=== PATIENT | male | born 2000 | race Caucasian/White ===

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

== ENCOUNTER 2019-11-02 09:42 | Emergency (ER) | payer SELFPAY ==
[2019-11-02 09:43] VITALS: BP 112/68; PULSE 63; RESP 18; TEMP 36.8; O2SAT 99; BMI 18.6
--- NOTE | 2019-11-02 10:08 | ED.VIS.GEN ---
History of Present Illness Chief Complaint: Chest Other Informant: Patient Narrative: Patient is a 18-year-old previously healthy male who presents to the emergency department for left-sided chest pain. He states that he woke up with this. He is never had it before in the past. It got up to an 8 out of 10 sharp stabbing sensation in the lower anterior chest wall. He currently denies any pain whatsoever. He states that his work sent him home and that is why he came to the emergency department to get a work excuse. He currently denies any pain whatsoever. Nothing aggravates it at this time. He states that the coughing did slightly hurt whenever he did have the symptoms earlier this morning. No associated shortness of breath. Has not had a leg swelling or calf pain. No history of DVT/PE. No recent prolonged periods of immobility. He is a current everyday smoker. Denies any alcohol or drug abuse. He denies any recent illnesses including any cough, cold, congestion. No fevers or chills. Past Medical History - Allergies and Home Meds Allergies/Adverse Reactions: Allergies No Known Allergies Allergy (Verified 11/02/19 09:45) Primary Care Physician: Mazin Torres MD [Primary Care Provider] - Prior records reviewed: Yes Past Medical History: - Surgical History: no surgical history Smoking Status: Current every day smoker Alcohol: None Drugs: None Review of Systems General: Denies: Chills, Fever, Sweats Eyes: Denies: Visual changes - bilaterally, Diplopia ENT: Denies: Rhinorrhea, Sore throat Cardiovascular: Denies: Chest pain - Resolved, Palpitations Respiratory: Denies: Dyspnea, Cough, Dyspnea on exertion Gastrointestinal: Denies: Abdominal pain, Nausea, Vomiting, Diarrhea, Melena, Hematochezia Genitourinary: Denies: Dysuria, Hematuria, Frequency Musculoskeletal: Denies: Back pain, Extremity Pain Skin: Denies: Rash, Wounds Neurological: Denies: Headache, Weakness, Numbness Physical Exam Vital Signs/Narrative: Vital Signs Temp Pulse Resp BP Pulse Ox 11/02/19 09:43 98.2 F 63 18 112/68 99 Inital Vital Signs reviewed: Yes General: Well nourished, Well developed, No Acute Distress Head: Normocephalic, Atraumatic Eyes: Perrl, EOMI ENT: Moist mucous membranes, No rhinorrhea Neck: Supple, Nontender Cardiovascular: Regular rate, Regular rhythm, No murmurs Respiratory: No distress, CTA bilaterally, Chest tenderness - Very mild to lower anterior ribs on the left. No overlying skin changes. Abdomen: Soft, Nontender, Nondistended, Normal bowel sounds Back: Nontender, Normal Inspection Extremities: Nontender, No edema Skin: Normal color, No rash Neurological: Alert, Oriented x3, Cranial nerves II-XII grossly intact, Normal Strength, Normal Sensation Psychological: Normal affect, Normal Mood Diagnostic/Tx/Re-eval - Medical Decision Making Patient presents to the emerge department for an episode of sharp left-sided chest wall pain. This is since resolved. Vital signs within normal limits. Not hypoxic or tachycardic. Very low concern for pulmonary embolism. I did offer a work-up but patient is only requesting a work excuse at this time. Since patient's symptoms have completely resolved and vital signs within normal limits with a benign physical exam I do believe that this is appropriate. Provide a work excuse for today. He otherwise needs to follow-up with his PCP. If he develops any worsening symptoms he is to return to the emergency department for lab work, imaging. He understands and is agreeable with this plan. Will discharge home in stable condition. ED Disposition - Plan for ED Patient: Disposition: Home or Assisted Living Diagnosis: Chest wall pain Instructions: ED Chest Pain NonCardiac Referrals: Mazin Torres MD [Primary Care Provider] - 2 Days
== END 2019-11-02 10:56 | disposition home or self-care (01) ==
PROVIDERS: Emergency Provider Emergency Medicine; PCP Pediatrics
DX: R07.89 Other chest pain (principal); R05 Cough; F17.200 Nicotine dependence, unspecified, uncomplicated
CPT/HCPCS: 99282

== ENCOUNTER 2020-07-23 07:05 | Emergency (ER) | payer MEDICAID, SELFPAY ==
[2020-07-23 07:07] VITALS: BP 104/64; PULSE 68; RESP 16; TEMP 36.4; O2SAT 99; BMI 21.2
--- NOTE | 2020-07-23 07:25 | RAD_ITS ---
STUDY: X-RAY - RIGHT KNEE REASON FOR EXAM: Lateral right knee pain, football injury of the right knee. TECHNIQUE: 4 view(s) of the knee. COMPARISON: None. FINDINGS: Normal visualized distal femur. Normal visualized proximal tibia and fibula. Normal proximal tibiofibular articulation. Normal medial femorotibial compartment. Normal lateral femorotibial compartment. Normal patellofemoral articulation. The soft tissue structures are unremarkable. RAD/Knee 4 or More Views IMPRESSION: Normal x-ray examination of the right knee. Electronically Signed: Bienvenido Amin MD at 8:12 EDT Tel , Service support ,
[2020-07-23] MEDS: Naproxen 500 MG Tablet PO (07:37)
--- NOTE | 2020-07-23 08:01 | ED.VISSUMM ---
- ER Visit Summary Date of Service: 07/23/20 Chief Complaint: Right knee pain History of Present Illness: The patient is a 19 M with no primary care physician. He reports he was playing tackle football last night had a forced flexion and twist of his right knee. He did not feel a pop. He had mild pain last night. However, reports this morning when he attempted to walk he had a sharp pain was 10 out of 10 severity at worst. Stated 10 severity currently. He is not taking anything for pain. He denies any paresthesias distally. Physical Examination: Vitals: Stable. Afebrile. General: Well-nourished and well-developed. Head: Normocephalic atraumatic. Neck: Supple, no lymphadenopathy. No JVD. Nontender. Cardiovascular: Regular rate and rhythm. No murmurs. Respiratory: No respiratory distress. Clear to auscultation bilaterally. Abdominal: Soft, nontender, nondistended, normal bowel sounds. No guarding, rebound, or peritoneal signs. Back: Nontender. Extremities: No appreciable joint effusion. He has moderate tenderness palpation over the lateral portion of his knee. There is no pain over the medial portion. He has pain, but no ligamentous instability with lateral stress. No bony pain or ligamentous instability with anterior posterior drawer or medial stress. There is no overlying erythema or warmth. He has no pain with short arc movements. He is neuro vas intact distal to this. Skin: Normal color, no rash. Neurologic: Alert and oriented ?3. Cranial nerves II through XII are intact. Normal strength and sensation. Psych: Normal affect. Test Results: Right knee x-ray shows no acute disease. Emergency Department Course and Treatment: Patient was treated with naproxen and was placed on crutches. Treatment Plan: Patient will be discharged with naproxen. Instructed follow-up Dr. Muro in 1 week if not improving. Return to the emergency department for any worsening symptoms. Disposition: To home in improved and stable condition. Impression: 1. Right knee pain, acute. This note was generated with [employer] dictation software. It may contain incorrect words, spelling, and punctuation that were not noted in review of the chart prior to signing ED Disposition - Plan for ED Patient: Instructions: ED Knee Pain of Uncertain Cause Prescriptions: Naproxen [Naprosyn] 500 mg PO BID #14 tablet Referrals: Khris Muro MD [STAFF PHYSICIAN] - 1 Week if not improving
[2020-07-23 08:15] VITALS: RESP 16
--- NOTE | 2020-07-23 08:15 | ED.RN ---
REVIEWED D/C PAPERS, PT VERBALIZED UNDERSTANDING. PT AMBULATED OUT OF ED USING CRUTCHES. NO DISTRESS NOTED.
== END 2020-07-23 08:16 | disposition home or self-care (01) ==
LOC: ED 07:42
PROVIDERS: Emergency Provider Emergency Medicine; PCP Pediatrics
DX: M25.561 Pain in right knee (principal); F17.200 Nicotine dependence, unspecified, uncomplicated
CPT/HCPCS: 73564; 99285

== ENCOUNTER 2021-03-16 15:20 | Emergency (ER) | payer MEDICAID, SELFPAY ==
[2021-03-16 15:20] VITALS: BP 130/74; PULSE 53; RESP 14; TEMP 36.4; O2SAT 100; BMI 22.4
--- NOTE | 2021-03-16 16:14 | EX.ED.UPPERE ---
HPI History of Present Illness HPI Narrative: Patient presents with a right hand injury that occurred today. Patient states he was working on a car and he accidentally dropped a transmission onto his right hand. Patient states the pain is constant and aching. Patient states it is over the third and fourth metacarpals. Patient denies any paresthesias or weakness. Patient has 2 lacerations on the dorsum of his right hand from the trauma. Patient denies any other injuries. Chief Complaint: Upper Extremity Injury Informant: patient Occured/Mechanism Mechanism/Context: Yes blunt trauma Onset/Context/Timing Onset: Today Context: Sudden Onset Timing: Continuous Quality of Pain: Aching Worsened by: Movement Relieved by: Rest Associated Symptoms Associated Symptoms: Negative for Parasthesia, Weakness and Loss of Funtion PFSH PFS Medical History (Updated 03/16/21 @ 18:[address] Wayne Hair DO) Heart murmur Allergy/AdvReac Type Severity Reaction Status Date / Time No Known Allergies Allergy Verified 03/16/21 15:23 Surgical History (Updated 03/16/21 @ 16:[address] Wayne Hair DO) Hx of tympanostomy tubes Social History Smoking Status: Current every day smoker tobacco type: cigarettes ROS ROS ED Constitutional Constitutional ED: Denies chills or fever(s) Eyes Eyes: Denies blurry vision or change in vision ENT ENT ED: Denies rhinorrhea or sore throat Cardiovascular Cardiovascular: Denies chest pain or palpitations Respiratory/Chest Respiratory/Chest: Denies cough or dyspnea Gastrointestinal Gastrointestinal: Denies nausea or vomiting Genitourinary Genitourinary ED: Denies dysuria or hematuria Musculoskeletal Musculoskeletal: Denies back pain or neck pain Integumentary Denies abscess or rash Neurologic Neurologic: Denies headache(s) or weakness Allergic/Immunologic Allergic/Immunologic ED: Denies mouth swelling or urticaria EXAM Physical Exam Const Vital Signs: 03/16/21 15:20 Temperature 97.5 F L Temperature Source Temporal Pulse Rate 53 L Respiratory Rate 14 Blood Pressure 130/74 H Blood Pressure Mean 92 Pulse Ox 100 Oxygen Delivery Method Room Air Positive well nourished and well developed General Appearance ED: well developed HEENT Reports moist mucous membranes Neck full ROM and supple Extremity Extremity Narrative: There is tenderness over the right hand over the third and fourth metacarpals. There is no bony crepitance or step-off. There is no obvious deformity noted. Range of motion was slightly limited in all motions of the right hand and wrist secondary to pain. Sensation was intact to light touch in the radial, median, and ulnar areas. Strength is 5/5 in the radial, median, and ulnar areas. Radial pulses are equal bilaterally. Neuro oriented x3, CN's II-XII intact bilaterally, moves all extremities, no focal motor deficits and no sensory deficits noted Sensorium / Orientation: alert Psych mental status grossly normal Skin Skin Narrative: There is a 1 cm laceration over the dorsal aspect of the right hand over the distal third metacarpal. There is minimal gapping of the wound margins. There is no active bleeding. There is no foreign body noted. There is also a 1.5 cm linear laceration over the dorsal aspect of the right hand over the base of the fourth metacarpal. There is minimal gapping of the wound margins. There is no bleeding. There is no foreign body noted. MDM MDM MDM Narrative Medical decision making narrative: X-rays of the right hand were obtained. There are 3 views. On my interpretation, there is no acute fracture. There is no dislocation. There is no soft tissue swelling. Radiologist also interpreted the x-rays and agrees. The wounds were cleaned and irrigated with copious amounts normal saline. The wounds were closed with Dermabond skin adhesive. Patient was instructed to avoid any Neosporin, bacitracin, or Vaseline-based ointments to the area. Patient was instructed to keep the wound clean and dry. Patient was instructed to follow-up with his primary care physician in 5 to 7 days. Patient understood and was agreeable with the plan. All questions were answered. Discharge Plan Triage Chief Complaint: Upper Extremity Injury ED Provider: Wayne Hair Dx/Rx/DC Orders Clinical Impression: Laceration of right hand Instructions: ED Laceration, Hand: All Closures Primary Care Provider: Mazin Torres Referrals: Mazin Torres MD [Primary Care Provider] - 5-7 Days Disposition Disposition: Home, Self Care
--- NOTE | 2021-03-16 16:15 | RAD_ITS ---
STUDY: X-RAY - RIGHT HAND REASON FOR EXAM: Male, 20 years old. Injury/Pain dropped transmission on right hand TECHNIQUE: 3 view(s) of the hand. COMPARISON: None. FINDINGS: Normal radiocarpal articulation. Normal distal radioulnar joint. Normal visualized carpal bones. Normal carpal articulations Normal carpometacarpal articulation of the thumb. Normal second through fifth carpometacarpal joints. Normal metacarpi. No visualized fracture or displaced bony fragment. Normal metacarpophalangeal joint of the thumb. Normal interphalangeal joint of the thumb. Normal proximal and distal phalanges of the thumb. Normal metacarpophalangeal joints of the second through fifth fingers. Normal proximal and distal interphalangeal joints of the second through fifth fingers. Normal phalanges of the second through fifth fingers. The soft tissue structures are unremarkable. RAD/Hand Min 3 Views IMPRESSION: Normal x-ray examination of the hand. Electronically Signed: Saulo Gibson MD at 17:28 EST , Service support ,
[2021-03-16 18:37] VITALS: PULSE 16
== END 2021-03-16 18:38 | disposition home or self-care (01) ==
PROVIDERS: Emergency Provider Emergency Medicine; PCP Pediatrics
DX: S61.411A Laceration without foreign body of right hand, initial encounter (principal); W20.8XXA Other cause of strike by thrown, projected or falling object, initial encounter; Y93.89 Activity, other specified; Y92.9 Unspecified place or not applicable; Y99.9 Unspecified external cause status; F17.210 Nicotine dependence, cigarettes, uncomplicated
CPT/HCPCS: 12001; 73130; 99282

== ENCOUNTER 2021-05-06 02:07 | Emergency (ER) | payer MEDICAID, SELFPAY ==
[2021-05-06 02:09] VITALS: BP 119/68; PULSE 68; RESP 16; TEMP 38.1; O2SAT 100; BMI 21.7
--- NOTE | 2021-05-06 02:21 | RAD_ITS ---
EXAM: XR CHEST, 1 VIEW : 1999 CLINICAL INDICATION: cough TECHNIQUE: Frontal view of the chest. This report was created using [employer] report generation technology. COMPARISON: None. FINDINGS: LUNGS AND PLEURAL SPACES: Unremarkable. No consolidation or edema. No pneumothorax. No effusion. HEART: Unremarkable. Cardiac silhouette not enlarged. MEDIASTINUM: Central airways and mediastinal contour are unremarkable. BONES/JOINTS: Unremarkable. SOFT TISSUES: Unremarkable. RAD/Chest 1 View (Portable) IMPRESSION: No radiographic evidence of acute cardiopulmonary disease. at 0304 Reported and signed by: Giorgio Curiel MD Electronically Signed: Giorgio Curiel MD at 3:03 EST Tel , Service support ,
[2021-05-06] MEDS: 0.9% Normal Saline 1,000 ML 999 ML IV (02:39)
[2021-05-06] MEDS: dexAMETHasone 10 MG/ML Vial IV (02:39)
[2021-05-06] MEDS: Ketorolac 30 MG/ML Syringe IV (02:39)
[2021-05-06 02:45] LABS: Bacteria 0 SEEN /hpf (None Seen); Mucous, Urine 0 SEEN /hpf (<or=2+); Squamous Epithelial Cells - UA 0 SEEN /hpf (0-5); White Blood Cells 0 SEEN /hpf (0-5)
[2021-05-06 02:47] LABS: Color, Urine Yellow (Yellow); Glucose, Dipstick Normal (Normal); Ketone-Dipstick 5 mg/dl (Negative); Leukocyte Esterase-Dipstick Negative /ul (Negative); Nitrite-Dipstick Negative (Negative); Occult Blood-Urine Negative /ul (Negative); Protein-Dipstick 15 mg/dl (Negative); Specific Gravity, Urine 1.015 (1.002-1.030); Urine Bilirubin Dipstick Negative (Negative); Urine Clarity Clear (Clear); Urine Urobilinogen 8 mg/dl (Normal); Urine pH 6.5 (5.0 - 8.0)
[2021-05-06 02:57] LABS: Red Blood Cells-Urine 0-5 SEEN /hpf (0-5)
--- NOTE | 2021-05-06 03:05 | EDS_ITS ---
HPI History of Present Illness Chief Complaint: Back Narrative Narrative: Patient is a 20-year-old male who states that he has had a few days of nasal congestion with cough. He states he does have COVID exposure and is not vaccinated. He states that around 7 or 8 PM this evening he noticed pain in his upper mid back. He denies any trauma associated with this or excessive activity. He denies any loss of bowel or bladder control or IV drug use. He denies any radiation of the pain or abdominal pain associated with this. He states that he feels the pain has been slowly increasing since its onset and secondary to this presents for evaluation [facility] Medical History Heart murmur Home Medications NK 05/06/21 [History Last Taken Unknown] prednisone 40 mg PO DAILY 7 Days #14 tab 05/06/21 [Rx Last Taken Unknown] promethazine-codeine 5 ml PO Q6H PRN 7 Days #140 ml 05/06/21 [Rx Last Taken Unknown] Allergy/AdvReac Type Severity Reaction Status Date / Time No Known Allergies Allergy Verified 05/06/21 02:07 Surgical History Hx of tympanostomy tubes Social History Smoking Status: Current every day smoker tobacco type: cigarettes ROS ROS ED Constitutional Constitutional ED: Denies chills or fever(s) ENT ENT ED: Reports rhinorrhea and sore throat Cardiovascular Cardiovascular: Denies chest pain Respiratory/Chest Respiratory/Chest: Reports cough; Denies dyspnea Gastrointestinal Gastrointestinal: Denies abdominal pain, diarrhea, nausea or vomiting Genitourinary Genitourinary ED: Denies dysuria or hematuria Musculoskeletal Musculoskeletal: Reports back pain; Denies myalgias Integumentary Denies rash Neurologic Neurologic: Denies headache(s) Hematologic/Lymphatic Hematologic/Lymphatic: Denies easy bleeding or easy bruising EXAM Physical Exam Const Vital Signs: 05/06/21 02:09 Temperature 100.6 F H Temperature Source Temporal Pulse Rate 68 Respiratory Rate 16 Blood Pressure 119/68 Blood Pressure Mean 85 Pulse Ox 100 Oxygen Delivery Method Room Air Positive well nourished and well developed General Appearance ED: well developed HEENT Reports moist mucous membranes HEENT Narrative: Cobblestoning the posterior pharynx consistent with sinus drainage but no airway edema or compromise Eyes PERRL and EOMs intact bilaterally Neck supple Neck Narrative: Positive anterior cervical lymphadenopathy noted Chest Wall palpation of chest normal Resp normal respiratory effort and clear to auscultation bilaterally Cardio regular rate and regular rhythm GI normal to inspection, nondistended, normoactive bowel sounds, non-tender, non- distended and no masses Auscultation: normoactive bowel sounds Palpation: soft Back/Spine no CVA tenderness Back/Spine Narrative: No bony deformity or step-off of the thoracic or lumbar spine. There is mild pain with palpation of the middle to lower third of the t horacic spine noted. Extremity normal to inspection Neuro oriented x3 and CN's II-XII intact bilaterally Sensorium / Orientation: alert Motor Exam: strength 5/5 throughout Psych mental status grossly normal Skin no rashes or lesions noted Skin Narrative: No overlying soft tissue changes to suggest trauma or infection MDM MDM MDM Narrative Medical decision making narrative: Patient presented to the ER slightly febrile but otherwise with stable vital. He reported COVID exposure and has had congestion and cough and with his mid back pain I had concerned that he may have developed a pneumothorax or pneumonia. He did not have CVA pain but this could be an atypical presentation for kidney stones I elected to perform a urinalysis as well. The patient's urine sample showed no sign of infection or blood and that coupled with his physical exam go against kidney stone. The chest x-ray revealed no pneumothorax or infiltrate. The patient is not tachycardic or hypoxic nor does he have pleuritic chest pain therefore my concern for pulmonary embolus is low and I do not feel the need for a CTA. The patient's COVID sample was also negative indicating that his symptoms are most likely from a other viral URI and musculoskeletal pain from his coughing bout. Therefore at this time with negative work-up and improvement of symptoms with treatment and the fact patient has remained hemodynamically stable with no need for supplemental oxygen and he is low risk for any type of cardiac disease I will place him on symptomatic medications and he is safe for discharge. Lab Data Attestation: I reviewed the patient's lab results. Labs: Laboratory Results - last 24 hr 05/06/21 02:40 Urine Color Yellow Urine Clarity Clear Urine pH 6.5 Ur Specific [place] 1.015 Urine Protein 15 H Urine Glucose (UA) Normal Urine Ketones 5 H Urine Occult Blood Negative Urine Nitrite Negative Urine Bilirubin Negative Urine Urobilinogen 8 H Ur Leukocyte Esterase Negative Urine RBC 0-5 SEEN Urine WBC 0 SEEN Ur Squamous Epith Cells 0 SEEN Urine Bacteria 0 SEEN Urine Mucus 0 SEEN Radiography Diagnostic Testing: Clinical Impression(s) from Imaging Studies Chest X-Ray 05/06/21 02:21 IMPRESSION: No radiographic evidence of acute cardiopulmonary disease. at 0304 Reported and signed by: Giorgio Curiel MD Electronically Signed: Giorgio Curiel MD at 3:03 EST Tel , Service support , Discharge Plan Triage Chief Complaint: Back Other Complaint: General Illness ED Provider: Alfred Quinones Dx/Rx/DC Orders Clinical Impression: Viral upper respiratory illness, Thoracic myofascial strain Instructions: ED Thoracic Spine Strain, ED URI, Viral, No Abx (Adult) Prescriptions: New prednisone 20 mg tablet 40 mg PO DAILY 7 Days Qty: 14 RF: 0 promethazine-codeine 6.25-10 mg/5 mL syrup 5 ml PO Q6H PRN (Reason: cough) 7 Days Qty: 140 RF: 0 No Action NK RF: 0 Stand Alone Forms: Work Status Form Primary Care Provider: Mazin Torres Referrals: Mazin Torres MD [Primary Care Provider] - Disposition Disposition: Home, Self Care
[2021-05-06 03:37] VITALS: BP 135/67; PULSE 80; RESP 16; O2SAT 97
== END 2021-05-06 03:40 | disposition home or self-care (01) ==
PROVIDERS: Emergency Provider Emergency Medicine; PCP Pediatrics; Visit Provider Emergency Medicine
DX: J06.9 Acute upper respiratory infection, unspecified (principal); F17.210 Nicotine dependence, cigarettes, uncomplicated; S29.019A Strain of muscle and tendon of unspecified wall of thorax, initial encounter; X58.XXXA Exposure to other specified factors, initial encounter; Y93.9 Activity, unspecified; Y92.9 Unspecified place or not applicable
CPT/HCPCS: 71045; 81001; 87426; 96361; 96374; 96375; 99283; J7030

== ENCOUNTER 2022-07-19 07:52 | Emergency (ER) | payer MEDICAID, SELFPAY ==
[2022-07-19 07:54] VITALS: BP 133/65; PULSE 55; RESP 14; TEMP 36.3; O2SAT 98; BMI 20.4
--- NOTE | 2022-07-19 08:11 | EDS_ITS ---
HPI History of Present Illness Chief Complaint: Eye Problem Detail of Chief Complaint: Bleeding from right eye Narrative Narrative: Patient presents secondary to bleeding from his right eye. He states at work yesterday got some dust particles in his eye. He washed the area out. He woke this morning with dried blood noted along the medial aspect of his eye. Eye was not crusted shut. He has no light sensitivity or watering. He does not wear glasses or contacts. [facility] Medical History Heart murmur Home Medications NK 07/19/22 [History Last Taken Unknown] Allergy/AdvReac Type Severity Reaction Status Date / Time No Known Allergies Allergy Verified 07/19/22 07:55 Surgical History Hx of tympanostomy tubes Social History Smoking Status: Current every day smoker tobacco type: cigarettes ROS ROS ED Constitutional Constitutional ED: Denies chills or fever(s) Eyes Eyes: Reports blurry vision right ENT ENT ED: Denies rhinorrhea or sore throat Cardiovascular Cardiovascular: Denies chest pain Respiratory/Chest Respiratory/Chest: Denies cough Gastrointestinal Gastrointestinal: Denies abdominal pain Hematologic/Lymphatic Hematologic/Lymphatic: Denies easy bleeding or easy bruising Allergic/Immunologic Allergic/Immunologic ED: Denies mouth swelling or tongue swelling EXAM Physical Exam Narrative Exam Narrative: Patient lying in bed in a well lit room. Patient in no distress. Const Vital Signs: 07/19/22 07:54 Temperature 97.4 F L Temperature Source Temporal Pulse Rate 55 L Respiratory Rate 14 Blood Pressure 133/65 H Blood Pressure Mean 87 Pulse Ox 98 Oxygen Delivery Method Room Air Positive well nourished and well developed General Appearance ED: well developed HEENT HEENT Narrative: Dried blood noted over the medial canthus of the right eye onto the skin. Eye itself is not injected. Extraocular movements fully intact. No drainage noted. Resp normal respiratory effort Cardio regular rate Neuro oriented x3 and moves all extremities Motor Exam: strength 5/5 throughout MDM MDM MDM Narrative Medical decision making narrative: Skin over the medial canthus is cleansed. Patient has a superficial abrasion to this area that was bleeding. Eye itself is not injected with no sign of infection or foreign body. After cleansing the wound bacitracin ointment will be applied. Patient was instructed on wound care. Discharge Plan Triage Chief Complaint: Eye Problem ED Provider: Misti Ortiz Dx/Rx/DC Orders Clinical Impression: Abrasion Instructions: ED Abrasion Prescriptions: No Action NK Primary Care Provider: Mazin Torres Referrals: Mazin Torres MD [Primary Care Provider] - Disposition Disposition: Home, Self Care
[2022-07-19] MEDS: BACITRACIN 15 GM Tube 1 APPLIC TOPICAL (08:38)
[2022-07-19 08:40] VITALS: RESP 14
== END 2022-07-19 08:40 | disposition home or self-care (01) ==
LOC: ED 08:20
PROVIDERS: Emergency Provider Emergency Medicine; Visit Provider Emergency Medicine
DX: S00.211A Abrasion of right eyelid and periocular area, initial encounter (principal); F17.210 Nicotine dependence, cigarettes, uncomplicated; X58.XXXA Exposure to other specified factors, initial encounter; Y99.0 Civilian activity done for income or pay
CPT/HCPCS: 99282

== ENCOUNTER 2022-08-28 02:08 | Emergency (ER) | payer MEDICAID, SELFPAY ==
[2022-08-28 02:08] VITALS: BP 115/57; PULSE 75; RESP 16; TEMP 37.5; O2SAT 99; BMI 20.1
--- NOTE | 2022-08-28 02:10 | EDS_ITS ---
HPI History of Present Illness Chief Complaint: Cold Sx [facility] Medical History Heart murmur Home Medications NK 07/19/22 [History Last Taken Unknown] Allergy/AdvReac Type Severity Reaction Status Date / Time No Known Allergies Allergy Verified 07/19/22 07:55 Surgical History Hx of tympanostomy tubes Social History Smoking Status: Current every day smoker tobacco type: cigarettes EXAM Physical Exam Const Vital Signs: 08/28/22 02:08 08/28/22 02:08 Temperature 99.5 F H Temperature Source Temporal Pulse Rate 75 Respiratory Rate 16 Respiratory Effort Normal Non-Labored Respiratory Depth Normal Respiratory Pattern Normal Blood Pressure 115/57 L Blood Pressure Mean 76 Pulse Ox 99 Oxygen Delivery Method Room Air Room Air MDM MDM MDM Narrative Medical decision making narrative: HISTORY OF PRESENT ILLNESS: 21-year-old male here for cough, shortness of breath and sore throat. He states he had 3 to 4 hours of feeling like poop. He states he has no sick contacts. He is update on his immunizations including COVID and flu. He states he develops cough productive of green sputum. He states he then developed bilateral lower rib margin pain that is exacerbated only with cough. He does endorse associated shortness of breath. He denies any chest pain. Denies any leg swelling. Denies any vomiting. Denies any fever. Denies any falls or recent trauma. Denies any syncope. The patient denies recent surgery in the last 4 weeks or immobilization in the last 3 days, denies previous diagnosis of DVT or PE, hemoptysis, unilateral leg swelling or malignancy with treatment the last 6 months. No estrogen use noted. REVIEW OF SYMTPTOMS: PERTINENT POSITIVES: Cough, shortness of breath, sore throat PERTINENT NEGATIVES: Syncope, chest pain, leg swelling PHYSICAL EXAM: Nursing triage notes reviewed, Vital signs reviewed Constitutional: please see mdm HENT: MMM, uvula midline, erythema noted to posterior oropharynx with no exudates or tonsillar erythema or edema noted. Eyes: Pupils equal round and reactive to light, Extraocular muscles intact Neck: No stridor, no JVD, full neck ROM Lungs: Clear to auscultation, No wheezing or rales. No increased work of breathing, no conversational dyspnea, no accessory muscle use, no nasal flaring. No respiratory distress noted Heart: Regular rate and rhythm, No murmurs, No rubs and No gallops, 2+ distal pulses (radial, femoral, posterior tibial) in all extremities Abdomen: Soft, there is no tenderness, rigidity, rebound or guarding, no obvious peritoneal signs, no palpable pulsatile abdominal masses, no auscultated abdominal bruit : No CVAT Extremities: No edema, no unilateral leg swelling Neuro: No focal neurological deficits, cranial nerves II through XII intact, 5/5 strength in all extremities. Intact sensation to light touch in all extremities, 2+ reflexes bilateral patella dens. Normal gait. No ataxia. Skin: No rash or lesions noted MEDICAL DECISION MAKING: Chief Complaint: Cough, sore throat shortness of breath External records reviewed: Chest x-ray of 2021 shows no acute process No recent ED visits or hospitalizations for similar symptoms MDM Narrative: Patient was hemodynamically stable, afebrile, nontoxic-appearing. Exam without focal cardiopulmonary abnormalities. No stigmata of VTE I considered the following differential diagnosis: ACS, PE, pneumonia, CHF, viral illness I considered obtaining a CT scan of the patient's chest with contrast rule out PE however the patient low risk Wells score, PERC negative. Low suspicion for PE. My suspicion is a CT scan were have high risk of a missed diagnosis given patient's PERC negative status. I also considered ACS and obtained an EKG without any ischemic changes. I obtained COVID and flu swabs. I also obtained a chest x-ray to rule out pneumonia or signs of volume overload. EKG showed no evidence of arrhythmia, myocardial ischemia. Labs and images were remarkable for no evidence of COVID or flu. Chest x-ray without evidence of pneumonia or pulmonary edema. There is no clear etiology patient's complaints likely viral. Instructed Tylenol ibuprofen use. Gave strict return precautions and follow-up instructions. All questions were answered. Factors affecting care: History of ADHD Social determinants of health: Tobacco abuse History obtained from others: Shared decision making: I will have a discussion with the patient and or visitors regarding risk/benefits of further testing or admission. They will be made aware of of the risk/benefits inherent in this decision they will be given the opportunity to voice understanding. Consults: None Lab Data Attestation: I reviewed the patient's lab results. Lab results narrative: EKG with normal sinus rhythm, normal axis, normal intervals, no STEMI, no ARVD, no WPW, no Brugada signs COVID, flu negative Radiography Chest X-Ray - ED: Read by ED Physician Diagnostic Testing: Clinical Impression(s) from Imaging Studies Chest X-Ray 08/28/22 02:35 IMPRESSION: No acute cardiopulmonary abnormality. Electronically Signed: Bao Bhatia MD at 2:49 EDT , I have personally reviewed the patient's chest x-ray. Chest x-ray is unremarkable for pulmonary edema, pneumothorax, pneumonia or focal cardiopulmonary abnormality. Discharge Plan Triage Chief Complaint: Cold Sx ED Provider: Claudio Spain Dx/Rx/DC Orders Prescriptions: No Action NK Primary Care Provider: Care Physician,No Primary Referrals: Care Physician,No Primary [Primary Care Provider] -
--- NOTE | 2022-08-28 02:19 | EKG12_ITS ---
Test Reason : DYSRHYTHMIA Blood Pressure : / mmHG Vent. Rate : 067 BPM Atrial Rate : 067 BPM P-R Int : 144 ms QRS Dur : 098 ms QT Int : 380 ms P-R-T Axes : 064 078 057 degrees QTc Int : 401 ms Normal sinus rhythm Normal ECG Confirmed by KELLY MORENO, JOSH ([id number]), medical editor SOY QUIROZ ([id number]) on 08/30/2022 2:41:36 PM Referred By: MORIS Confirmed By:LARRY MENDOZA MD
--- NOTE | 2022-08-28 02:22 | NURSING ---
NO OLD EKGS
[2022-08-28] MEDS: Ibuprofen 200 MG Tablet 400 MG PO (02:31)
[2022-08-28] MEDS: Acetaminophen 325 MG Tablet 650 MG PO (02:32)
--- NOTE | 2022-08-28 02:35 | RAD_ITS ---
EXAM: XR CHEST, 2 VIEWS CLINICAL INDICATION: Cough, shortness of breath rule out pneumonia TECHNIQUE: Frontal and lateral views of the chest. COMPARISON: 05/06/2021. FINDINGS: LUNGS AND PLEURAL SPACES: Unremarkable. No consolidation or edema. No pneumothorax. No effusion. HEART: Unremarkable. Cardiac silhouette not enlarged. MEDIASTINUM: Central airways and mediastinal contour are unremarkable. BONES/JOINTS: Unremarkable. SOFT TISSUES: Unremarkable. RAD/Chest PA and Lateral IMPRESSION: No acute cardiopulmonary abnormality. Electronically Signed: Bao Bhatia MD at 2:49 EDT ,
== END 2022-08-28 03:16 | disposition home or self-care (01) ==
PROVIDERS: Emergency Provider Emergency Medicine; Visit Provider Emergency Medicine
DX: J02.9 Acute pharyngitis, unspecified (principal); R07.81 Pleurodynia; F17.210 Nicotine dependence, cigarettes, uncomplicated; R06.02 Shortness of breath
CPT/HCPCS: 71046; 87428; 93005; 99283

== ENCOUNTER 2023-03-04 21:45 | Emergency (ER) | payer BC, MEDICAID, SELFPAY ==
[2023-03-04 21:46] VITALS: BP 115/78; PULSE 103; RESP 15; TEMP 37.7; O2SAT 99; BMI 18.8
--- NOTE | 2023-03-04 22:36 | EDS_ITS ---
HPI History of Present Illness Chief Complaint: General Illness Narrative Narrative: 22-year-old male presenting with cough, congestion, body aches, chills. He states he did test himself for COVID before coming to the ER and this was negative. He states he had to leave work today because he was not feeling well. He is not complaining of nausea or vomiting. He is with his significant other who does not have any symptoms. Patient states he is a smoker but has quit smoking since has been ill. He states he is going to quit completely. Denies any significant medical problems. [facility] Medical History Heart murmur Home Medications benzonatate 200 mg capsule 200 mg PO TID PRN cough #30 caps 03/04/23 [Rx Last Taken Unknown] oxymetazoline 0.05 % nasal spray (Nasal Decongestant (oxymetazoline)) 2 spray intranasal Q12H PRN nasal congestion 3 days #15 mL 03/04/23 [Rx Last Taken Unknown] Allergy/AdvReac Type Severity Reaction Status Date / Time No Known Allergies Allergy Verified 03/04/23 21:49 Surgical History Hx of tympanostomy tubes Social History household members: significant other and children Smoking Status: Current every day smoker tobacco type: cigarettes ROS ROS ED Constitutional Constitutional ED: Reports chills, fever(s) and subjective; Denies sweats Eyes Eyes: Denies blurry vision or change in vision ENT ENT ED: Reports rhinorrhea and sore throat; Denies ear pain Cardiovascular Cardiovascular: Denies chest pain, palpitations or racing heartbeat Respiratory/Chest Respiratory/Chest: Reports cough and sputum; Denies dyspnea Gastrointestinal Gastrointestinal: Denies abdominal pain, constipation, diarrhea, nausea or vomiting Genitourinary Genitourinary ED: Denies dysuria, hematuria or urinary frequency Musculoskeletal Musculoskeletal: Reports myalgias; Denies arthralgias or neck pain Integumentary Denies abscess, Abrasions or rash Neurologic Neurologic: Denies headache(s), paresthesias or weakness Psychiatric Psychiatric: Denies anxiety, depression, suicidal ideation or suicidal thoughts Endocrine Endocrinology: Denies polydipsia or polyuria EXAM Physical Exam Const Vital Signs: 03/04/23 21:46 03/04/23 22:08 03/04/23 23:00 Temperature 99.9 F H Temperature Source Temporal Pulse Rate 103 H Respiratory Rate 15 14 Respiratory Pattern Normal Blood Pressure 115/78 Blood Pressure Mean 90 Pulse Ox 99 Oxygen Delivery Method Room Air Positive well nourished General Appearance ED: NAD; Negative for pallor HEENT Nose: nasal discharge clear Mouth ED: Yes lips normal Mouth: lips normal Resp normal respiratory effort and clear to auscultation bilaterally Auscultation: Negative for rales or rhonchi Cardio regular rate and regular rhythm GI normal to inspection, nondistended, normoactive bowel sounds Neuro oriented x3 and CN's II-XII intact bilaterally Skin no rashes or lesions noted General Skin Exam: Negative for jaundice or pallor MDM MDM MDM Narrative Medical decision making narrative: Patient presenting with cough, congestion, sore throat. I suspect something viral. Lungs are clear to auscultation. HEENT exam positive for nasal congestion and rhinorrhea. Patient states he tested himself for COVID at home and it was negative. I did offer him a formal test of COVID and influenza but he declines. I offered a chest x-ray to rule out pneumonia he declines this also. Patient requests a work note for today and tomorrow. This was provided. Patient given a prescription for Tessalon Perles and Afrin. Impression: 1. Viral syndrome Discharge Plan Triage Chief Complaint: General Illness ED Provider: Shakir Hinton Dx/Rx/DC Orders Instructions: ED Viral Syndrome (Adult) Prescriptions: New benzonatate 200 mg capsule 200 mg PO TID PRN (Reason: cough) Qty: 30 0RF oxymetazoline [Nasal Decongestant (oxymetazl)] 0.05 % spray,non-aerosol 2 spray intranasal Q12H PRN (Reason: nasal congestion) 3 Days Qty: 15 0RF Stand Alone Forms: ED Work / School Excuse Primary Care Provider: Care Physician,No Primary Referrals: Leyda Kahn [facility] [Provider Group] - 3-5 Days Care Physician,No Primary [Primary Care Provider] - Disposition Disposition: Home, Self Care Discharge Date/Time: 03/04/23 23:01
[2023-03-04 23:00] VITALS: RESP 14
== END 2023-03-04 23:01 | disposition home or self-care (01) ==
PROVIDERS: Emergency Provider Student in an Organized Health Care Education/Training Program; Visit Provider Student in an Organized Health Care Education/Training Program
DX: B34.9 Viral infection, unspecified (principal); R05.9 Cough, unspecified; J02.9 Acute pharyngitis, unspecified; J34.89 Other specified disorders of nose and nasal sinuses; F17.210 Nicotine dependence, cigarettes, uncomplicated
CPT/HCPCS: 99283

== ENCOUNTER 2023-11-06 19:21 | Emergency (ER) | payer MEDICAID, SELFPAY ==
[2023-11-06 19:22] VITALS: BP 128/54; PULSE 50; RESP 18; TEMP 36.2; O2SAT 98; BMI 20.7
--- NOTE | 2023-11-06 19:33 | ED.VIS.DENTA ---
HPI History of Present Illness Chief Complaint: Dental Informant: patient Onset/Context/Timing Onset: Days (2-3) Context: Gradual Onset Timing: Continuous Quality: Stabbing Location: Left lower molars Worsened by: Breathing Relieved by: - (Nothing) Associated Symptoms Assocated Symptom - Dental: Negative for fever, jaw swelling, face swelling, cold sensitivity or hot sensitivity Narrative Narrative: Patient presents with dental pain that has been getting worse over the past 2 to 3 days. Patient states it is gradually gotten worse. Patient describes the pain as stabbing. Patient states it is mainly over the left lower molar areas. Patient states it is worse when he opens his mouth and breathes. Patient denies any fevers or chills. Patient denies any jaw or facial swelling. Patient denies any hot or cold sensitivity. Patient states that the pain does radiate to his left ear. Patient does not have a dentist. [facility] Medical History Heart murmur Home Medications ?Medication ?Instructions ?Recorded ?Last Taken ?Type benzonatate 200 mg capsule 200 mg PO TID PRN cough #30 caps 03/04/23 Unknown Rx oxymetazoline 0.05 % nasal spray 2 spray intranasal Q12H PRN nasal 03/04/23 Unknown Rx (Nasal Decongestant congestion 3 days #15 mL (oxymetazoline)) penicillin V potassium 500 mg 500 mg PO 4X/DAY #40 tabs 11/06/23 Unknown Rx tablet Allergy/AdvReac Type Severity Reaction Status Date / Time No Known Allergies Allergy Verified 11/06/23 19:22 Surgical History Hx of tympanostomy tubes Social History household members: significant other and children Smoking Status: Current every day smoker tobacco type: cigarettes ROS ROS ED Constitutional Constitutional ED: Denies chills or fever(s) Eyes Eyes: Denies blurry vision or change in vision ENT ENT ED: Reports ear pain left; Denies rhinorrhea or sore throat Cardiovascular Cardiovascular: Denies chest pain or palpitations Respiratory/Chest Respiratory/Chest: Denies cough or dyspnea Gastrointestinal Gastrointestinal: Denies nausea or vomiting Genitourinary Genitourinary ED: Denies dysuria or hematuria Musculoskeletal Musculoskeletal: Denies back pain or neck pain Integumentary Denies abscess or rash Neurologic Neurologic: Denies headache(s) or weakness Allergic/Immunologic Allergic/Immunologic ED: Denies mouth swelling or urticaria EXAM Physical Exam Const Vital Signs: 11/06/23 19:22 Temperature 97.1 F L Temperature Source Temporal Pulse Rate 50 L Respiratory Rate 18 Blood Pressure 128/54 H Blood Pressure Mean 78 Pulse Ox 98 Oxygen Delivery Method Room Air Positive well nourished and well developed General Appearance ED: well developed and NAD HEENT HEENT Narrative: There are dental caries over the left upper and lower second molar. There is edema around the left lower second molar. There is no fluctuance. There is no evidence of any abscess. Oral mucosa is pink and moist. Oropharynx is clear. Airway is patent. Neck is supple. Trachea is midline. There is no JVD. There is no sublingual edema or evidence of Jude's angina. Mouth ED: Yes oral and palatal mucosa normal Mouth: oral and palatal mucosa normal Teeth and Gingiva: caries and gingiva abnormal Positive for gingival edema Throat: posterior oropharynx normal Neck supple and no JVD General: Negative for anterior neck swelling, tenderness or submandibular swelling Neuro oriented x3, CN's II-XII intact bilaterally, moves all extremities, no focal motor deficits and no sensory deficits noted Sensorium / Orientation: alert Motor Exam: strength 5/5 throughout Psych mental status grossly normal MDM MDM MDM Narrative Medical decision making narrative: Smoking cessation was discussed. Patient was advised that these infected dental caries. Patient was given a dose of Pen-Vee K here. Patient was given a prescription for Pen-Vee K. Patient was given a dental referral sheet. Patient was instructed to follow-up with a dentist in 5 to 7 days. Patient was instructed to take Tylenol or ibuprofen as needed for pain. Patient understood and was agreeable with the plan. All questions were answered. Discharge Plan Triage Chief Complaint: Dental ED Provider: Wayne Hair Dx/Rx/DC Orders Clinical Impression: Infected dental caries, Tobacco use disorder Instructions: ED Dental Cavity Prescriptions: New penicillin V potassium 500 mg tablet 500 mg PO 4X/DAY Qty: 40 0RF No Action benzonatate 200 mg capsule 200 mg PO TID PRN (Reason: cough) Qty: 30 0RF oxymetazoline [Nasal Decongestant (oxymetazl)] 0.05 % spray,non-aerosol 2 spray intranasal Q12H PRN (Reason: nasal congestion) 3 Days Qty: 15 0RF Primary Care Provider: Care Physician,No Primary Referrals: Care Physician,No Primary [Primary Care Provider] - Dentist,Your [STAFF PHYSICIAN] - 5-7 Days Print Language: Lao Disposition Disposition: Home, Self Care
[2023-11-06] MEDS: Penicillin Vk 250 MG Tablet 500 MG PO (20:11)
[2023-11-06 20:13] VITALS: BP 110/65; PULSE 80; RESP 16; TEMP 37.1; O2SAT 98
== END 2023-11-06 20:14 | disposition home or self-care (01) ==
PROVIDERS: Emergency Provider Emergency Medicine; Visit Provider Emergency Medicine
DX: K02.9 Dental caries, unspecified (principal); F17.210 Nicotine dependence, cigarettes, uncomplicated; Z79.899 Other long term (current) drug therapy
CPT/HCPCS: 99282

== ENCOUNTER 2023-11-20 22:48 | Emergency (ER) | payer MEDICAID, SELFPAY ==
[2023-11-20 22:49] VITALS: BP 131/77; PULSE 64; RESP 18; TEMP 36.4; O2SAT 96; BMI 19.5
--- NOTE | 2023-11-20 23:12 | EX.ED.DYSGE1 ---
HPI History of Present Illness Chief Complaint: Dental Informant: patient Narrative Narrative: Patient is a 22-year-old male with past medical history of dental caries and tobacco use. He was seen on November 05 secondary to left lower jaw pain and found to have dental caries which had concern for potential infection and was placed on penicillin. He states he took this as directed but was not able to follow-up with a dentist as he has been gone on vacation. He states there is been no trauma and he denies any trouble breathing or swallowing but reports that he now has pain and swelling to the left lower jaw and has concern that the antibiotic did not work and therefore comes in for repeat evaluation. [facility] Medical History Heart murmur Home Medications ?Medication ?Instructions ?Recorded ?Last Taken ?Type penicillin V potassium 500 mg 500 mg PO 4X/DAY #40 tabs 11/06/23 Unknown Rx tablet clindamycin HCl 300 mg capsule 300 mg PO 4X/DAY 10 days #40 caps 11/20/23 Unknown Rx oxycodone-acetaminophen 5 mg-325 1 tab PO Q6H PRN pain 3 days #12 11/20/23 Unknown Rx mg tablet (Percocet) tabs Allergy/AdvReac Type Severity Reaction Status Date / Time No Known Allergies Allergy Verified 11/20/23 22:49 Surgical History Hx of tympanostomy tubes Social History household members: significant other and children Smoking Status: Current every day smoker tobacco type: e-cigarettes ROS ROS ED Constitutional Constitutional ED: Denies chills or fever(s) Eyes Eyes: Denies change in vision ENT ENT ED: Reports other Details: Positive dental pain and facial swelling ; Denies sore throat Cardiovascular Cardiovascular: Denies chest pain Respiratory/Chest Respiratory/Chest: Denies cough or dyspnea Gastrointestinal Gastrointestinal: Denies abdominal pain, diarrhea, nausea or vomiting Genitourinary Genitourinary ED: Denies dysuria Musculoskeletal Musculoskeletal: Denies myalgias Integumentary Denies rash Neurologic Neurologic: Denies headache(s) Hematologic/Lymphatic Hematologic/Lymphatic: Denies easy bleeding or easy bruising Allergic/Immunologic Allergic/Immunologic ED: Denies mouth swelling or tongue swelling EXAM Physical Exam Const Vital Signs: 11/20/23 22:49 Temperature 97.6 F L Temperature Source Temporal Pulse Rate 64 Respiratory Rate 18 Blood Pressure 131/77 H Blood Pressure Mean 95 Pulse Ox 96 Oxygen Delivery Method Room Air Positive well nourished and well developed General Appearance ED: well developed HEENT HEENT Narrative: Patient has dental caries with the worst being in the left lower molar. There is slight soft tissue erythema and gingival swelling noted consistent with developing dental abscess however no obvious area of fluctuance. No findings across the gingiva to suggest ANUG. No airway edema or compromise No secondary changes in the posterior pharynx to suggest infection Eyes PERRL and EOMs intact bilaterally Neck supple Neck Narrative: No nuchal rigidity or meningeal signs No brawny edema in the submental space to suggest Jude's angina Resp normal respiratory effort and clear to auscultation bilaterally Cardio regular rate and regular rhythm Extremity normal to inspection Neuro oriented x3, CN's II-XII intact bilaterally and no sensory deficits noted Sensorium / Orientation: alert Motor Exam: strength 5/5 throughout Psych mental status grossly normal Skin Skin Narrative: There is mild soft tissue swelling along the lateral aspect of the left lower jaw/face without overlying erythema or warmth MDM MDM MDM Narrative Medical decision making narrative: Patient arrived to the ER slightly hypertensive otherwise with stable vitals. He reported he took the previous antibiotic without any symptom improvement and now has mild soft tissue swelling and increased pain to the left lower jaw. On exam there is no overlying cellulitis or signs of salivary gland infection or potential sialoadenitis. He does not have any physical exam findings to suggest Jude's angina or ANUG. Internally there is a dental carry of the left posterior molar. There is mild gingival swelling and irritation and this correlates with the soft tissue findings found along the outer left cheek concerning for developing abscess. I discussed with patient potential dental block and incision and drainage. He states he does not want that performed at this time and will follow-up with a dentist. However as his history and exam is indicating that the penicillin fail to resolve the underlying infection he will be changed to clindamycin and is otherwise safe for discharge as there is no signs of airway edema or compromise or systemic infection. History & Record Review Discussion w/independent historian: Patient Discharge Plan Triage Chief Complaint: Dental ED Provider: Alfred Quinones Dx/Rx/DC Orders Clinical Impression: Dental abscess, Dental caries, Tobacco use Instructions: Dental Abscess, ED Dental Pain Prescriptions: New clindamycin HCl 300 mg capsule 300 mg PO 4X/DAY 10 Days Qty: 40 0RF oxycodone-acetaminophen [Percocet] 5-325 mg tablet 1 tab PO Q6H PRN (Reason: pain) 3 Days Qty: 12 0RF No Action penicillin V potassium 500 mg tablet 500 mg PO 4X/DAY Qty: 40 0RF Primary Care Provider: Care Physician,No Primary Referrals: Care Physician,No Primary [Primary Care Provider] - Activity Restrictions/Additional Instructions: Please begin taking the clindamycin as it appears you have failed the penicillin that was prescribed previously as you are now developing a small dental abscess. This will most likely need incised and drained by your dentist. Follow-up with the dentist to discuss this type of treatment and return to the ER should you have any further concerns or worsening of symptoms Print Language: Cook Islander Disposition Disposition: Home, Self Care Discharge Date/Time: 11/20/23 23:27
[2023-11-20] MEDS: oxyCODONE 5 MG Tablet 10 MG PO (23:20)
[2023-11-20] MEDS: Clindamycin HCl 150 MG Capsule 300 MG PO (23:20)
== END 2023-11-20 23:27 | disposition home or self-care (01) ==
PROVIDERS: Emergency Provider Emergency Medicine; Visit Provider Emergency Medicine
DX: K04.7 Periapical abscess without sinus (principal); F17.210 Nicotine dependence, cigarettes, uncomplicated; K02.9 Dental caries, unspecified
CPT/HCPCS: 99283

== ENCOUNTER 2024-05-18 19:08 | Emergency (ER) | payer MEDICAID, SELFPAY ==
[2024-05-18 19:09] VITALS: BP 109/72; PULSE 74; RESP 18; TEMP 36.4; O2SAT 98; BMI 22.0
--- NOTE | 2024-05-18 19:48 | EX.ED.DYSGE1 ---
HPI <JAYDA Gipson - Last Filed: 05/18/24 20:10> History of Present Illness Chief Complaint: Other, Pain/Inj Narrative Narrative: Patient is a 23-year-old male with no significant medical history. Patient resents the emerged part with left groin pain after slipping, doing a split on the ice today. Patient cannot go to work. Patient is worsening pain with flexion or extension of the left hip. Patient Nuys any other injury. Patient Nuys any history of the testicles, scrotum, penis. PFSH <JAYDA Gipson - Last Filed: 05/18/24 20:10> PFSH Medical History Heart murmur Home Medications ?Medication ?Instructions ?Recorded ?Last Taken ?Type ibuprofen 600 mg tablet 600 mg PO Q6H PRN PRN pain #20 05/18/24 Unknown Rx TABLETS Allergy/AdvReac Type Severity Reaction Status Date / Time No Known Allergies Allergy Verified 05/18/24 19:09 Surgical History Hx of tympanostomy tubes Social History household members: significant other and children Smoking Status: Current every day smoker tobacco type: e-cigarettes ROS <JAYDA Gipson - Last Filed: 05/18/24 20:10> ROS ED ROS Narrative Constitutional: Negative for fever, chills, weight loss, weakness Eyes: Negative for vision loss, vision change, double vision ENT: Negative for any sore throat, ear pain, congestion Cardiovascular: Negative for any chest pain, tightness, palpitations Respiratory: Negative for any cough, sputum production, hemoptysis, dyspnea, dyspnea on exertion, orthopnea Gastrointestinal: Negative for any abdominal pain, nausea, vomiting, diarrhea, constipation, blood in stool, blood in vomit : Negative for any urinary frequency, dysuria, retention, blood in urine Muscle skeletal: Negative for any neck pain, back pain. Positive for left groin strain Neurological: Negative for any headache, syncope, dizziness Skin: Negative for any rashes, itching, abrasions, lacerations Psychiatric: Negative for any depression, anxiety, stress, suicidal ideation, homicidal ideation Hematologic: Negative for any excessive bruising, easy bleeding EXAM <JAYDA Gipson - Last Filed: 05/18/24 20:10> Physical Exam Narrative Exam Narrative: Vital signs reviewed. HEET: Head normocephalic atraumatic, TMs clear bilaterally. Posterior pharynx is clear, moist mucous membranes. Nares clear bilaterally. Neck: Supple with no lymphadenopathy or tenderness. No signs of meningismus. Cardiac: Regular rate and rhythm no murmurs gallops or rubs, equal peripheral pulses bilaterally. Respiratory: Lungs clear to auscultation bilaterally. No chest tenderness. Abdomen: Soft, nontender, nondistended. No abdominal bruit or pulsatile masses. No hepatosplenomegaly Extremities: No peripheral edema, no signs of gross trauma or deformity. Active full range of motion of all extremities. Patient does have some pain with flexion and extension of the hip. Extensor mechanism is intact. Some pain on palpation. Some pain with extension against resistance. Neuro: Cranial nerves II through XII intact, no focal neurological deficits. Skin: Clean dry and intact with no rash, purpura, petechiae, vesicles or pustules. Backs/flank: No CVA tenderness, no midline spinal tenderness, no deformity. Psych: Normal mood and affect. No SI, HI or acute psychosis. Const Vital Signs: 05/18/24 19:09 05/18/24 20:09 Temperature 97.6 F L Temperature Source Oral Pulse Rate 74 Respiratory Rate 18 Respiratory Effort Normal Non-Labored Respiratory Pattern Normal Blood Pressure 109/72 Blood Pressure Mean 84 Pulse Ox 98 Oxygen Delivery Method Room Air <Dr. Christina Martinez DO - Last Filed: 05/18/24 23:44> Physical Exam Const Vital Signs: 05/18/24 19:09 05/18/24 20:09 Temperature 97.6 F L Temperature Source Oral Pulse Rate 74 Respiratory Rate 18 Respiratory Effort Normal Non-Labored Respiratory Pattern Normal Blood Pressure 109/72 Blood Pressure Mean 84 Pulse Ox 98 Oxygen Delivery Method Room Air MDM <JAYDA Gipson - Last Filed: 05/18/24 20:10> [facility] Treatment and Re-Evaluation :: Differential diagnosis includes however is not limited to: Hip strain, quadricep tear, scrotal tear, hematoma Patient appears generally well, vital signs are stable, patient is nontoxic-appearing. Presenting to the emergency department with complaints of left groin pain after doing a split like motion slipping on the ice. Patient's pain is mostly towards the medial proximal quad. There is no evidence of any rupture, patient has good range of motion of the left leg. Patient will also get a work note. At this time, I do believe that the patient is having more of a groin strain. Patient will continue to ice, perform gentle stretching. Patient was given ibuprofen here, prescription for ibuprofen. Instructed return for any worsening symptoms. <Dr. Christina Martinez, DO - Last Filed: 05/18/24 23:44> [facility] Treatment and Re-Evaluation :: Differential diagnosis includes however is not limited to: Hip strain, quadricep tear, scrotal tear, hematoma Patient appears generally well, vital signs are stable, patient is nontoxic-appearing. Presenting to the emergency department with complaints of left groin pain after doing a split like motion slipping on the ice. Patient's pain is mostly towards the medial proximal quad. There is no evidence of any rupture, patient has good range of motion of the left leg. Patient will also get a work note. At this time, I do believe that the patient is having more of a groin strain. Patient will continue to ice, perform gentle stretching. Patient was given ibuprofen here, prescription for ibuprofen. Instructed return for any worsening symptoms. I have personally performed a face to face assessment of the patient and have reviewed the ADENIKE Note. I performed a substantive portion of the visit including all aspects of the following. My richards findings include: History is Patient is 23-year-old male presenting with left proximal thigh/groin pain. He slipped on the ice and did a split. He has pain with active flexion of the hip. No testicular pain. Good strength. Suspect he has a groin strain. Is counseled on RICE therapy. Will treat conservatively at this time. Given work note. Is started on NSAIDs. Other additions or changes: [None] Discharge Plan Triage Chief Complaint: Other, Pain/Inj ED Midlevel Provider: Rey Vela ED Provider: Christina Martinez Dx/Rx/DC Orders Clinical Impression: Groin strain Instructions: ED Groin Strain Prescriptions: New ibuprofen 600 mg tablet 600 mg PO Q6H PRN PRN (Reason: pain) Qty: 20 0RF Stand Alone Forms: ED Work / School Excuse Primary Care Provider: Care Physician,No Primary Referrals: Care Physician,No Primary [Primary Care Provider] - Activity Restrictions/Additional Instructions: Please follow-up as needed. Print Language: Omani Disposition Disposition: Home, Self Care Discharge Date/Time: 05/18/24 20:57
[2024-05-18] MEDS: Ibuprofen 600 MG Tablet PO (19:49)
== END 2024-05-18 20:57 | disposition home or self-care (01) ==
PROVIDERS: Emergency Provider Emergency Medicine; Visit Provider Emergency Medicine
DX: S76.211A Strain of adductor muscle, fascia and tendon of right thigh, initial encounter (principal); W18.49XA Other slipping, tripping and stumbling without falling, initial encounter
CPT/HCPCS: 99282

== ENCOUNTER 2024-08-08 04:54 | Emergency (ER) | payer MEDICAID, SELFPAY ==
[2024-08-08 04:55] VITALS: BP 137/74; PULSE 55; RESP 16; TEMP 36.6; O2SAT 99; BMI 20.9
--- NOTE | 2024-08-08 05:12 | EX.ED.DYSGE1 ---
HPI History of Present Illness Chief Complaint: Ear Problem Informant: patient Narrative Narrative: Patient is a 23-year-old male with no significant past medical history. He states over the last 2 days he has noticed pain in the right ear. He states there is been no discharge and he denies any direct trauma. He also denies any sick symptoms such as congestion cough or drainage. He does state he uses a professional ear cleaning tool in used it bilaterally prior to his pain beginning on the right side. With concern for infection he presents for evaluation [facility] Medical History Heart murmur Home Medications ?Medication ?Instructions ?Recorded ?Last Taken ?Type cxhwwojy-rkkbeernf-gbpyrkscp 3.5 4 drp RIGHT EAR 4X/DAY 10 days #10 08/08/24 Unknown Rx mg-10,000 unit/mL-1 % ear mL drops,susp Allergy/AdvReac Type Severity Reaction Status Date / Time No Known Allergies Allergy Verified 08/08/24 04:55 Surgical History Hx of tympanostomy tubes Social History household members: significant other and children Smoking Status: Current every day smoker tobacco type: cigarettes and e-cigarettes ROS ROS ED Constitutional Constitutional ED: Denies chills or fever(s) Eyes Eyes: Denies blurry vision or change in vision ENT ENT ED: Reports ear pain right; Denies rhinorrhea or sore throat Cardiovascular Cardiovascular: Denies chest pain Respiratory/Chest Respiratory/Chest: Denies cough or dyspnea Gastrointestinal Gastrointestinal: Denies abdominal pain, diarrhea, nausea or vomiting Musculoskeletal Musculoskeletal: Denies myalgias or neck pain Integumentary Denies rash Neurologic Neurologic: Denies headache(s) Hematologic/Lymphatic Hematologic/Lymphatic: Denies easy bleeding or easy bruising Allergic/Immunologic Allergic/Immunologic ED: Denies mouth swelling or tongue swelling EXAM Physical Exam Const Vital Signs: 08/08/24 04:55 08/08/24 04:59 Temperature 97.8 F Temperature Source Oral Pulse Rate 55 L Respiratory Rate 16 Respiratory Effort Normal Non-Labored Respiratory Pattern Normal Blood Pressure 137/74 H Blood Pressure Mean 95 Pulse Ox 99 Oxygen Delivery Method Room Air Positive well nourished and well developed General Appearance ED: well developed; Negative for pallor HEENT HEENT Narrative: Normocephalic atraumatic No tongue or lip swelling no oral lesions no airway edema or compromise; no secondary findings in the posterior pharynx to suggest infection There is no pain with external manipulation of the left ear. Left ear canal appears normal and tympanic membrane also appears normal without findings of infection There is mild pain with external manipulation of the right ear. The right ear canal is slightly edematous and erythematous without discharge. The right tympanic membrane is retracted but shows no secondary findings to suggest infection No mastoid tenderness bilaterally Eyes PERRL and EOMs intact bilaterally General Eye ED: Negative for scleral icterus Neck supple Neck Narrative: No nuchal rigidity or meningeal signs Resp normal respiratory effort and clear to auscultation bilaterally Cardio regular rate and regular rhythm Extremity normal to inspection Neuro oriented x3, CN's II-XII intact bilaterally and no sensory deficits noted Sensorium / Orientation: alert Motor Exam: strength 5/5 throughout Psych mental status grossly normal Skin no rashes or lesions noted and no wounds General Skin Exam: Negative for jaundice or pallor MDM MDM MDM Narrative Medical decision making narrative: Patient arrived to the ER with stable vitals. He reported right sided ear pain without trauma or obvious sick symptoms. Differential diagnosis is for otitis media versus otitis externa and eustachian tube dysfunction. Exam shows retraction of the eardrum which could indicate eustachian tube dysfunction but no secondary findings to suggest otitis media. As the patient has pain with external manipulation as well has asymmetric redness and swelling of the canal I do feel this is early otitis externa. There is just malignant otitis externa nor does he had changes concerning for mastoiditis. Therefore at this time I do not feel there is need for further workup but patient can be placed on antibiotic eardrops secondary to the otitis externa and is otherwise safe for discharge History & Record Review Discussion w/independent historian: Patient Discharge Plan Triage Chief Complaint: Ear Problem ED Provider: Alfred Quinones Dx/Rx/DC Orders Clinical Impression: Otitis externa Instructions: ED External Ear Infection (Adult) Prescriptions: New chpvylwr-yjrngunqp-MX 3.5-10,000-1 mg/mL-unit/mL-% drops,suspension 4 drp RIGHT EAR 4X/DAY 10 Days Qty: 10 0RF Stand Alone Forms: ED Work / School Excuse Primary Care Provider: Care Physician,No Primary Referrals: Rey Bourne MD [Med Staff - Active Staff] - (Establish as PCP) Care Physician,No Primary [Primary Care Provider] - Activity Restrictions/Additional Instructions: Your exam shows changes consistent with an early outer ear infection. Use the prescribed drops as directed to resolve this. It would typically take 2 to 3 days for the antibiotics to take effect. Return to the ER should you have any further concerns or worsening of symptoms Print Language: Danish Disposition Disposition: Home, Self Care Discharge Date/Time: 08/08/24 05:24
== END 2024-08-08 05:24 | disposition home or self-care (01) ==
PROVIDERS: Emergency Provider Emergency Medicine; Visit Provider Emergency Medicine
DX: H60.91 Unspecified otitis externa, right ear (principal); F17.210 Nicotine dependence, cigarettes, uncomplicated; F17.290 Nicotine dependence, other tobacco product, uncomplicated
CPT/HCPCS: 99283

== ENCOUNTER 2024-10-15 09:52 | Emergency (ER) | payer MEDICAID, SELFPAY ==
[2024-10-15 09:52] VITALS: BP 117/80; PULSE 56; RESP 16; TEMP 35.5; O2SAT 97; BMI 20.9
[2024-10-15 09:54] VITALS: BP 117/80; PULSE 56; RESP 18; TEMP 35.5; O2SAT 99
--- NOTE | 2024-10-15 10:44 | ED.RN ---
Pt walked outside with friends
== END 2024-10-15 10:45 | disposition left against medical advice (07) ==
LOC: ED 10:53
DX: Z53.21 Procedure and treatment not carried out due to patient leaving prior to being seen by health care provider (principal)

== ENCOUNTER 2024-11-15 22:16 | Emergency (ER) | payer MEDICAID, SELFPAY ==
[2024-11-15 22:18] VITALS: BP 111/76; PULSE 78; RESP 16; TEMP 37.1; O2SAT 98
[2024-11-15 22:19] VITALS: BP 111/76; PULSE 78; RESP 16; TEMP 37.1; O2SAT 98
--- NOTE | 2024-11-15 22:34 | EDS_ITS ---
HPI History of Present Illness Chief Complaint: Dental Informant: patient and spouse/S.O. Narrative Narrative: 2-week history worsening right lower dental pain with hot and cold sensitivities. No fevers. Using Tylenol Motrin. Salt right now dental yesterday reports has an appointment on 26 November for extraction and dental fillings. No trouble swallowing. Prior similar symptoms: Yes PFSH PFSH Medical History Heart murmur Home Medications Medication Instructions Recorded Last Taken Type clindamycin HCl 150 mg capsule 450 mg (3 x 150 mg) PO TID #90 11/15/24 Unknown Rx CAPSULES Allergy/AdvReac Type Severity Reaction Status Date / Time No Known Allergies Allergy Verified 11/15/24 22:20 Surgical History Hx of tympanostomy tubes Social History household members: significant other and children Smoking Status: Current every day smoker tobacco type: cigarettes and e- cigarettes ROS ROS ED Constitutional Constitutional ED: Denies fever(s) ENT ENT ED: Reports other Details: Dental pain with hot and cold sensitivities Cardiovascular Cardiovascular: Denies chest pain Respiratory/Chest Respiratory/Chest: Denies cough Gastrointestinal Gastrointestinal: Denies diarrhea or vomiting Musculoskeletal Musculoskeletal: Denies none Integumentary Denies rash or wounds Neurologic Neurologic: Denies weakness EXAM Physical Exam Const Vital Signs: 11/15/24 22:18 Temperature 98.8 F Temperature Source Oral Pulse Rate 78 Respiratory Rate 16 Blood Pressure 111/76 Blood Pressure Mean 87 Pulse Ox 98 Oxygen Delivery Method Room Air Positive well nourished and well developed General Appearance ED: well developed and NAD HEENT Reports moist mucous membranes HEENT Narrative: Dental decay tooth 31 tenderness to percussion no gum swelling no sublingual edema. Also noted decay of tooth #18 with no fluctuance. Airway patent. normocephalic and atraumatic Eyes General Eye ED: Yes normal appearance of both eyes Neck full ROM Chest Wall Chest: Negative for tenderness Resp normal respiratory effort and normal air movement Effort and Inspection: symmetric chest movement; Negative for respiratory distress Cardio regular rate, regular rhythm and no murmurs Peripheral Pulses: pulses 2+ throughout GI normal to inspection, nondistended, normoactive bowel sounds and non-tender Palpation: Negative for guarding or rebound tenderness present Extremity normal to inspection General Extremety ED: Negative for edema or tenderness General Extremity: Negative for edema Neuro oriented x3 and no sensory deficits noted Sensorium / Orientation: awake and alert Skin no rashes or lesions noted and no wounds MDM MDM MDM Narrative Medical decision making narrative: Interventions / MDM: Differential diagnosis: Dental caries, dentalgia Diagnosis considered but do not suspect: No clinical Jude angina My EKG interpretation: N/A Imaging independently reviewed and interpreted by myself: N/A External documents reviewed: ED visits a year ago in October failed penicillin placed on clindamycin. Test considered but not ordered:N/A ED course: Focal dental caries tooth 18 and 31 however tenderness over 31. No clinical liquids findings. No abscess. Reviewing records he did better on clindamycin previously. Will start this. He will continue Tylenol or Motrin. Work note provided. He has definitive treatment planned for November 26. Re-evaluation: stable Disposition discussed with patient/family/significant other: Patient and significant other Case discussed with consulting clinician: N/A This note was generated with [employer] dictation software. It may contain incorrect words, spelling, and punctuation that were not noted in checking the note before signing. Discharge Plan Triage Chief Complaint: Dental ED Provider: Natanael Bloom Dx/Rx/DC Orders Clinical Impression: Dentalgia, Dental caries Instructions: ED Dental Pain, ED Dental Cavity Prescriptions: New clindamycin HCl 150 mg capsule 450 mg PO TID Qty: 90 0RF Stand Alone Forms: ED Work / School Excuse Primary Care Provider: Care Physician,No Primary Referrals: Care Physician,No Primary [Primary Care Provider] - Activity Restrictions/Additional Instructions: Take your antibiotics as prescribed. Continue Tylenol or Motrin for pain control. Keep your dental appointment on November 26 for definitive treatment. Print Language: Ghanaian Disposition Disposition: Home, Self Care
[2024-11-15 22:45] VITALS: BP 110/65; PULSE 72; RESP 18; TEMP 36.6; O2SAT 98
== END 2024-11-15 22:46 | disposition home or self-care (01) ==
LOC: ED 22:43
PROVIDERS: Emergency Provider Emergency Medicine; Visit Provider Emergency Medicine
DX: K08.89 Other specified disorders of teeth and supporting structures (principal); K02.9 Dental caries, unspecified; F17.210 Nicotine dependence, cigarettes, uncomplicated; F17.290 Nicotine dependence, other tobacco product, uncomplicated
CPT/HCPCS: 99282

== ENCOUNTER 2024-11-30 22:39 | Emergency (ER) | payer MEDICAID, SELFPAY ==
[2024-11-30 22:40] VITALS: BP 121/65; PULSE 68; RESP 18; TEMP 36.9; O2SAT 98; BMI 21.4
[2024-11-30] MEDS: Lidocaine 1% (20 ml mdv) 20 ML Vial 10 ML INFILT (22:53)
--- NOTE | 2024-11-30 22:54 | RAD_ITS ---
PROCEDURE: FINGER(S) MIN 2 VIEWS 11/30/2024 REASON FOR EXAM: INDEX, LAC TECHNIQUE: FINGER(S) MIN 2 VIEWS Laterality: Left COMPARISON: No FINDINGS: No acute bone or joint pathology. No foreign body. Possible laceration, dorsal PIP joint region. RAD/Finger(s) Min 2 Views IMPRESSION: Soft tissue injury Reading Location: [facility]
--- OUTSIDE RECORDS SUMMARY | 2024-11-30 22:55 | XMS RPT_ITS | CCD ---
Author Organization [facility] Care Team Providers Care Industrial Hygiene Technician Name Role Phone TAWNY DENG Unavailable Unavailable BJ PEÑA Unavailable Unavailable CARMEN SCHULER Unavailable Unavailable BJ PEÑA Unavailable Unavailable DAMIR LAURENT Admitting Unavail DAMIR Armendariz Attending Unavail able DAMIR LAURENT Primary Care Unavail Bj Hughes MD Primary Care Provider [phone] Unavailable Primary Care Provider Unavailabl e Care Physician, No Primary Primary Care Provider Unavailable Dr. Christina Martinez DO Attending Provider Dr. Christina Martinez DO Emergency Provider [phone] Alfred Quinones DO Emergency Provider Care Physician, No Primary Primary Care Provider Unavailable Dr. Alfred Quinones DO Attending Provider Provider, Ed Physician Emergency Provider SANJANA Roberts Attending Unavailable BJ PEÑA Primary Care Unavailable Provider, Ed Physician Attending Provider Dr. Natanael Kelly Emergency Provider Care Physician, No Primary Primary Care Unava ilable Provider, Ed Physician Attending Unavailab Natanael West Attending Unavailable Care Physician, No Primary Primary Care Unava ilable Care Physician, No Primary Primary Care Unava ilable Alfred Quinones Attending Unavailable Care Physician, No Primary Primary Care Unava ilable Christina Martinez Attending Unavailable Medications Current Medications Medication Drug Class(es) Dates Sig (Normalized) Sig (Original) amoxicillin 875 mg oral tablet (2 sources) Penicillin-class Antibacterial Start: 10-21-2024 End: 10-26-2024 take 1 tablet by mouth twice daily amoxicillin (AMOXIL) 875 mg tablet Take 1 tablet by mouth two times a day for 5 days. 10 tablet 10/21/2024 10/26/2024 Active Start: 08-03-2024 End: 08-10-2024 take 1 tablet by mouth twice daily amoxicillin (AMOXIL) 875 mg tablet Indications: Acute otitis media, right Take 1 tablet by mouth two times a day for 7 days. 14 tablet 08/03/2024 08/10/2024 Active clindamycin 150 mg oral capsule (4 sources) Lincosamide Antibacterial Start: 11-15-2024 take 3 capsules by mouth three times daily Clindamycin Hcl 150 mg capsule Active 450 mg PO THREE TIMES A DAY 90 November 15, 2024 12:00am Start: 11-20-2023 End: 05-18-2024 take 1 capsule by mouth four times daily Clindamycin Hcl 300 mg capsule Discontinued 300 mg PO 4 TIMES DAILY 40 10 November 20, 2023 12:00am May 18, 2024 8:09pm cloNIDine hydrochloride 0.1 mg oral tablet (4 sources) Central alpha-2 Adrenergic Agonist Start: 07-12-2017 take 1 tablet by mouth once daily at bedtime cloNIDine HCl (CATAPRES) 0.1 mg tablet One tablet po qhs 30 tablet 6 07/12/2017 Active lisdexamfetamine dimesylate 50 mg oral capsule (12 sources) Central Nervous System Stimulant Start: 12-05-2017 take 1 capsule by mouth once daily lisdexamfetamine (VYVANSE) 50 mg capsule Indications: Attention deficit hyperactivity disorder (ADHD), combined type Take 1 capsule by mouth once daily for 30 days. Earliest Fill Date: 03/03/18 30 capsule 03/03/2018 Active Completed/Discontinued Medications Medication Drug Class(es) Dates Sig (Normalized) Sig (Original) acetaminophen 325 mg / oxyCODONE hydrochloride 5 mg oral tablet (3 sources) Opioid Agonist Start: 11-20-2023 End: 05-18-2024 Oxycodone-Acetamin ophen (Percocet) 5-325 mg tablet Discontinued 1 {tbl} PO EVERY 6 HOURS as needed for pain 12 3 November 20, 2023 May 18, 2024 8:09pm Dental abscess Periapical abscess without sinus benzonatate 200 mg oral capsule (3 sources) Non-narcotic Antitussive Start: 03-04-2023 End: 07-28-2024 take 1 capsule by mouth three times daily as needed for cough Benzonatate 200 mg capsule Discontinued 200 mg PO THREE TIMES A DAY as needed for cough 30 0 March 04, 2023 1:00am November 20, 2023 10:54pm hydrocortisone 10 mg/ml / neomycin 3.5 mg/ml / polymyxin b 54215 unt/ml otic suspension (3 sources) Aminoglycoside Antibacterial, Polymyxin-class Antibacterial, Corticosteroid Start: 08-08-2024 End: 11-15-2024 Neomycin-Polymyxin -Hc 3.5-10,000-1 mg/mL-unit/mL-% drops,suspension Discontinued 4 NMA RIGHT EAR 4 TIMES DAILY 10 10 0 August 08, 2024 12:00am November 15, 2024 10:36pm ibuprofen 600 mg oral tablet (3 sources) Nonsteroidal Anti-inflammatory Drug Start: 05-18-2024 End: 08-08-2024 take 1 tablet by mouth every six hours as needed for pain Ibuprofen 600 mg tablet Discontinued 600 mg PO EVERY 6 HOURS NEEDED as needed for pain 20 0 May 18, 2024 1:00am August 08, 2024 4:55am oxymetazoline hydrochloride 0.5 mg/ml nasal spray (3 sources) Start: 03-04-2023 End: 11-20-2023 Oxymetazoline (Nasal Decongestant (Oxymetazl)) 0.05 % spray,non-aerosol Discontinued 2 NMA INTRANASAL Q12H as needed for nasal congestion 15 3 0 March 04, 2023 1:00am November 20, 2023 10:55pm penicillin v potassium 500 mg oral tablet (3 sources) Start: 11-06-2023 End: 05-18-2024 take 1 tablet by mouth four times daily Penicillin V Potassium 500 mg tablet Discontinued 500 mg PO 4 TIMES DAILY 40 0 November 06, 2023 12:00am May 18, 2024 8:09pm Problems Active Problems Problem Classification Problem Date Documented Date Episodic/Chronic Attention-deficit, conduct, and disruptive behavior disorders (4 sources) Attention deficit hyperactivity disorder; Translations: [Attention-deficit hyperactivity disorder, unspecified type] Onset: 08-13-2008 01-26-2015 Chronic Disorders of teeth and jaw (16 sources) Dental caries; Translations: [Dental caries, unspecified] Onset: 10-21-2024 11-28-2023 Episodic E Codes: Other specified and classifiable (1 source) Caught, crushed, jammed, or pinched between moving objects, initial encounter; Translations: [Caught, crushed, jammed, or pinched between moving objects, initial encounter] Onset: 11-03-2022 Episodic Immunizations and screening for infectious disease (1 source) Contact with or exposure to other viral diseases; Translations: [Close exposure to COVID-19 virus] 12-29-2023 Episodic Nonspecific chest pain (10 sources) Chest wall pain; Translations: [Other chest pain] 02-05-2015 Episodic Open wounds of extremities (5 sources) Laceration of hand; Translations: [Laceration without foreign body of right hand, initial encounter] 03-24-2021 Episodic Other ear and sense organ disorders (3 sources) Otitis externa; Translations: [Unspecified otitis externa, unspecified ear] 08-08-2024 Chronic Other injuries and conditions due to external causes (5 sources) Abrasion; Translations: [Other injury of unspecified body region, initial encounter] 07-19-2022 Episodic Other injuries and conditions due to external causes (3 sources) Other specified injuries of right wrist, hand and finger(s), initial encounter; Translations: [Other specified injuries of right wrist, hand and finger(s), initial encounter] Onset: 11-03-2022 Episodic Other upper respiratory infections (15 sources) Acute upper respiratory infection; Translations: [Acute upper respiratory infection, unspecified] 02-05-2015 Episodic Otitis media and related conditions (1 source) Acute right otitis media; Translations: [Otitis media, unspecified, right ear] 08-03-2024 Episodic Residual codes; unclassified (3 sources) Tobacco use and exposure - finding; Translations: [Tobacco use] 11-28-2023 Episodic Residual codes; unclassified (1 source) Procedure and treatment not carried out due to patient leaving prior to being seen by health care provider; Translations: [Procedure and treatment not carried out due to patient leaving prior to being seen by health care provider] Onset: 10-19-2024 Episodic Sprains and strains (13 sources) Strain of muscle at thorax level; Translations: [Strain of muscle and tendon of unspecified wall of thorax, initial encounter] 05-14-2021 Episodic Substance-related disorders (4 sources) Nicotine dependence, cigarettes, uncomplicated; Translations: [Tobacco user] Onset: 11-03-2022 11-14-2023 Chronic Substance-related disorders (1 source) Cannabis use, unspecified, uncomplicated; Translations: [Cannabis use, unspecified, uncomplicated] Onset: 11-03-2022 Episodic Unclassified (3 sources) Establish as PCP Past or Other Problems Problem Classification Problem Date Documented Da te Episodic/Chronic Abdominal pain (1 source) Left lower quadrant pain; Translations: [Left lower quadrant pain] Onset: 06-05-2024 Episodic Joint disorders and dislocations; trauma-related (4 sources) Joint derangement; Translations: [Other internal derangements of unspecified knee] Onset: 12-16-2014 Resolved: 10-03-2016 10-03-2016 Chronic Other ear and sense organ disorders (1 source) Unspecified disorder of right ear; Translations: [Unspecified disorder of right ear] Onset: 08-13-2024 Episodic Other non-traumatic joint disorders (4 sources) Pain in lower limb; Translations: [Pain in unspecified knee] Onset: 12-16-2014 Resolved: 10-03-2016 10-03-2016 Episodic Results Test Name Value Interpretation Reference Range Facility Emergency Department Summary on 11-15-2024 Emergency Department Summary [facility] Medical Records Department [address] [place] [address] Emergency Department Summary 11/15/24 MR#: [id number] Acct: [id number] Name: JUANA NI Rep #: [id number] : 2000 23 From: Natanael Ratliff PCP: Care Physician,No Primary Status:DEP ER Location: ED HPI History of Present Illness Chief Complaint: Dental Informant: patient and spouse/S.O. Narrative Narrative: 2-week history worsening right lower dental pain with hot and cold sensitivities. No fevers. Using Tylenol Motrin. Salt right now dental yesterday reports has an appointment on 26 November for extraction and dental fillings. No trouble swallowing. Prior similar symptoms: Yes [facility] Medical History Heart murmur Home Medications ???Medication ???Instructions ???Recorded ???Last Taken ???Type clindamycin HCl 150 mg capsule 450 mg (3 x 150 mg) PO TID #90 Unknown Rx CAPSULES Allergy/AdvReac Type Severity Reaction Status Date / Time No Known Allergies Allergy Verified 11/15/24 22:20 Surgical History Hx of tympanostomy tubes Social History household members: significant other and children Smoking Status: Current every day smoker tobacco type: cigarettes and e-cigarettes ROS ROS ED Constitutional Constitutional ED: Denies fever(s) ENT ENT ED: Reports other Details: Dental pain with hot and cold sensitivities Cardiovascular Cardiovascular: Denies chest pain Respiratory/Chest Respiratory/Chest: Denies cough Gastrointestinal Gastrointestinal: Denies diarrhea or vomiting Musculoskeletal Musculoskeletal: Denies none Integumentary Denies rash or wounds Neurologic Neurologic: Denies weakness EXAM Physical Exam Const Vital Signs: 11/15/24 22:18 Temperature 98.8 F Temperature Source Oral Pulse Rate 78 Respiratory Rate 16 Blood Pressure 111/76 Blood Pressure Mean 87 Pulse Ox 98 Oxygen Delivery Method Room Air Positive well nourished and well developed General Appearance ED: well developed and NAD HEENT Reports moist mucous membranes HEENT Narrative: Dental decay tooth 31 tenderness to percussion no gum swelling no sublingual edema. Also noted decay of tooth #18 with no fluctuance. Airway patent. normocephalic and atraumatic Eyes General Eye ED: Yes normal appearance of both eyes Neck full ROM Chest Wall Chest: Negative for tenderness Resp normal respiratory effort and normal air movement Effort and Inspection: symmetric chest movement; Negative for respiratory distress Cardio regular rate, regular rhythm and no murmurs Peripheral Pulses: pulses 2+ throughout GI normal to inspection, nondistended, normoactive bowel sounds and non-tender Palpation: Negative for guarding or rebound tenderness present Extremity normal to inspection General Extremety ED: Negative for edema or tenderness General Extremity: Negative for edema Neuro oriented x3 and no sensory deficits noted Sensorium / Orientation: awake and alert Skin no rashes or lesions noted and no wounds MDM MDM MDM Narrative Medical decision making narrative: Interventions / MDM: Differential diagnosis: Dental caries, dentalgia Diagnosis considered but do not suspect: No clinical Jude angina My EKG interpretation: N/A Imaging independently reviewed and interpreted by myself: N/A External documents reviewed: ED visits a year ago in [place] failed penicillin placed on clindamycin. Test considered but not ordered:N/A ED course: Focal dental caries tooth 18 and 31 however tenderness over 31. No clinical liquids findings. No abscess. Reviewing records he did better on clindamycin previously. Will start this. He will continue Tylenol or Motrin. Work note provided. He has definitive treatment planned for November 26. Re-evaluation: stable Disposition discussed with patient/family/signsanjay andrade other: Patient and significant other Case discussed with consulting clinician: N/A This note was generated with [employer]ation software. It may contain incorrect words, spelling, and punctuation that were not noted in checking the note before signing. Discharge Plan Triage Chief Complaint: Dental ED Provider: Natanael Bloom/Rx/DC Orders Clinical Impression: Dentalgia, Dental caries Instructions: ED Dental Pain, ED Dental Cavity Prescriptions: New clindamycin HCl 150 mg capsule 450 mg PO TID Qty: 90 0RF Stand Alone Forms: ED Work / School Excuse Primary Care Provider: Care Physician,Angely Primary Referrals: Care Physician,No Primary [Primary Care Provider] - Activity Restrictions/Additiona l Instructions: Take your antibiotics as pr (more content not included)... Normal [facility] 10-21-2024 [facility] Office Visit ([facility] ) ALFREDODONNAJUANA ([id number]) 89 M Date Time Provider Department 10/21/24 10:45 AM SANJANA [facility] During your visit today, we recorded the following information about you: Temperature Pulse Respiration Blood pressure 97.4 degrees 54/minute 18/minute 133/80 Weight 72.1 kg Sanjana Pugh PA 10/21/2024 10:52 AM Signed [facility] Subjective Juana Ni is a 23 year old male. Patient presents with: Dental Problem: R tooth pain and swelling x2 days HPI Dental Pain: - Onset: Approximately one week ago. - Location: Upper and lower teeth, with radiation to the ear. - Severity: Described as so bad; not relieved by Tylenol or ibuprofen. - Denies history of dental infections. - Unable to secure a dental appointment until March; actively seeking an earlier appointment. - No known medication allergies. PAST MEDICAL HISTORY Diagnosis Date ADHD (attention deficit hyperactivity disorder) NEGATIVE HISTORY OF 2012 normal color vision Other abnormal heart sounds 02/2002 Dr Dang--Functional Heart murmur PAST SURGICAL HISTORY Procedure Laterality Date NONE ALLERGIES Patient has no known allergies. MEDICATIONS amoxicillin (AMOXIL) 875 mg tablet Take 1 tablet by mouth two times a day for 5 days. lisdexamfetamine (VYVANSE) 50 mg capsule Take 1 capsule by mouth once daily for 30 days. Earliest Fill Date: 03/03/18 (Patient not taking: Reported on 08/03/2024) lisdexamfetamine (VYVANSE) 50 mg capsule Take 1 capsule by mouth once daily for 30 days. Earliest Fill Date: 02/03/18 (Patient not taking: Reported on 01/24/2018) lisdexamfetamine (VYVANSE) 50 mg capsule Take 1 capsule by mouth once daily for 30 days. Earliest Fill Date: 12/05/17 (Patient not taking: Reported on 08/03/2024) cloNIDine HCl (CATAPRES) 0.1 mg tablet One tablet po qhs (Patient not taking: Reported on 02/13/2021) FAMILY HISTORY Problem Relation Age of Onset other (heart murmur) Maternal Grandmother other (myocardial infarction) Maternal Grandmother mggm other (paternal unknown) Maternal Grandmother Social History Tobacco Use Smoking status: Every Day Types: Cigarettes Smokeless tobacco: Never Tobacco comments: smokers inside Substance Use Topics Alcohol use: No Drug use: No Review of Systems Ears/Nose/Mouth/Throat : (+) dental pain, (+) ear pain Objective BP 133/80 Pulse (!) 54 Temp 36.3 ?C (97.4 ?F) Resp 18 Wt 72.1 kg (158 lb 15.2 oz) SpO2 99% Physical Exam Vitals reviewed. Constitutional: General: He is not in acute distress. Appearance: Normal appearance. He is not toxic-appearing. HENT: Right Ear: Tympanic membrane and ear canal normal. Left Ear: Tympanic membrane and ear canal normal. Mouth/Throat: Mouth: Mucous membranes are moist. Dentition: Abnormal dentition. Dental tenderness, gingival swelling and dental caries present. No dental abscesses. Comments: Patient has diffuse dental decay with dental caries. Tooth #1 is decayed down to the gumline with gingival swelling. Tooth #32 is also tender to touch with decay and gum swelling. No trismus. Handling secretions. No tongue or floor mouth swelling. Cardiovascular: Rate and Rhythm: Normal rate and regular rhythm. Pulmonary: Effort: Pulmonary effort is normal. Breath sounds: Normal breath sounds. Skin: General: Skin is warm and dry. Neurological: Mental Status: He is alert. General: No acute distress. HEENT: Tympanic membranes clear bilaterally; dental caries noted on upper and lower posterior teeth; mild edema noted on affected side of the mouth. {1. Dental caries (K02.9) 2. Dental infection (K04.7) - Severe dental pain originating from two teeth, one on the R upper and one on the lower jaw, with sharp pain radiating to the ear. Examination reveals significant decay in the posterior upper tooth extending to the gum line, and mild swelling on the affected side. - Initiated amoxicillin therapy, prescription sent to [facility]. - Advised patient to continue taking Tylenol and ibuprofen for pain management. - Recommended patient to contact other dental offices for an earlier appointment and to get on a waitlist with the current dentist. - Instructed patient to seek emergency care if pain becomes unmanageable. Recording using [employer] software for draft documentation of the visit was discussed with the patient/authorized players club representative; all questions welcomed and answered. Patient/authorized players club representative agreed to proceed History and Record Review External record(s) reviewed: prior outpatient record. Differential Diagnoses - Dental infection is more likely for the following reason(s): suggested by HANDP - Jude's angina is less likely for the following reason(s): HANDP not suggestive Disposition The patient was discharged. OTC Medic (more content not included)... Normal [facility] Emergency Department Summary on 08-08-2024 Emergency Department Summary [facility] Medical Records Department [address] [place] [address] Emergency Department Summary 08/08/24 MR#: [id number] Acct: [id number] Name: JUANA NI Rep #: [id number] : 2000 23 From: Alfred Quinones DO PCP: Care Physician,No Primary Status:DEP ER Location: ED HPI History of Present Illness Chief Complaint: Ear Problem Informant: patient Narrative Narrative: Patient is a 23-year-old male with no significant past medical history. He states over the last 2 days he has noticed pain in the right ear. He states there is been no discharge and he denies any direct trauma. He also denies any sick symptoms such as congestion cough or drainage. He does state he uses a professional ear cleaning tool in used it bilaterally prior to his pain beginning on the right side. With concern for infection he presents for evaluation [facility] Medical History Heart murmur Home Medications ???Medication ???Instructions ???Recorded ???Last Taken ???Type [id number] rocort 3.5 4 drp RIGHT EAR 4X/DAY 10 days #10 08/08/24 Unknown Rx mg-10,000 unit/mL-1 % ear mL drops,susp Allergy/AdvReac Type Severity Reaction Status Date / Time No Known Allergies Allergy Verified 08/08/24 04:55 Surgical History Hx of tympanostomy tubes Social History household members: significant other and children Smoking Status: Current every day smoker tobacco type: cigarettes and e-cigarettes ROS ROS ED Constitutional Constitutional ED: Denies chills or fever(s) Eyes Eyes: Denies blurry vision or change in vision ENT ENT ED: Reports ear pain right; Denies rhinorrhea or sore throat Cardiovascular Cardiovascular: Denies chest pain Respiratory/Chest Respiratory/Chest: Denies cough or dyspnea Gastrointestinal Gastrointestinal: Denies abdominal pain, diarrhea, nausea or vomiting Musculoskeletal Musculoskeletal: Denies myalgias or neck pain Integumentary Denies rash Neurologic Neurologic: Denies headache(s) Hematologic/Lymphatic Hematologic/Lymphatic: Denies easy bleeding or easy bruising Allergic/Immunologic Allergic/Immunologic ED: Denies mouth swelling or tongue swelling EXAM Physical Exam Const Vital Signs: 08/08/24 04:55 04/16/25 04:59 Temperature 97.8 F Temperature Source Oral Pulse Rate 55 L Respiratory Rate 16 Respiratory Effort Normal Non-Labored Respiratory Pattern Normal Blood Pressure 137/74 H Blood Pressure Mean 95 Pulse Ox 99 Oxygen Delivery Method Room Air Positive well nourished and well developed General Appearance ED: well developed; Negative for pallor HEENT HEENT Narrative: Normocephalic atraumatic No tongue or lip swelling no oral lesions no airway edema or compromise; no secondary findings in the posterior pharynx to suggest infection There is no pain with external manipulation of the left ear. Left ear canal appears normal and tympanic membrane also appears normal without findings of infection There is mild pain with external manipulation of the right ear. The right ear canal is slightly edematous and erythematous without discharge. The right tympanic membrane is retracted but shows no secondary findings to suggest infection No mastoid tenderness bilaterally Eyes PERRL and EOMs intact bilaterally General Eye ED: Negative for scleral icterus Neck supple Neck Narrative: No nuchal rigidity or meningeal signs Resp normal respiratory effort and clear to auscultation bilaterally Cardio regular rate and regular rhythm Extremity normal to inspection Neuro oriented x3, CN's II-XII intact bilaterally and no sensory deficits noted Sensorium / Orientation: alert Motor Exam: strength 5/5 throughout Psych mental status grossly normal Skin no rashes or lesions noted and no wounds General Skin Exam: Negative for jaundice or pallor MDM MDM MDM Narrative Medical decision making narrative: Patient arrived to the ER with stable vitals. He reported right sided ear pain without trauma or obvious sick symptoms. Differential diagnosis is for otitis media versus otitis externa and eustachian tube dysfunction. Exam shows retraction of the eardrum which could indicate eustachian tube dysfunction but no secondary findings to suggest otitis media. As the patient has pain with external manipulation as well has asymmetric redness and swelling of the canal I do feel this is early otitis externa. There is just malignant otitis externa nor does he had changes concerning for mastoiditis. Therefore at this time I do not feel there is need for further workup but patient can be placed on antibiotic eardrops se (more content not included)... Normal [facility]OVon 08-03-2024 [facility]OV Office Visit ([facility] ) JUANA NI ([id number]) 89 M Date Time Provider Department 08/03/24 10:45 AM ANA LILIA SHANKS [facility] During your visit today, we recorded the following information about you: Temperature Pulse Respiration Blood pressure 97.4 degrees 56/minute 18/minute 117/65 Weight 70 kg Ana Lilia Shanks, ELECTRIC CONTAINER TESTER.[employer]OD CARVING LATHE OPERATOR 08/03/2024 11:05 AM Signed [facility] Subjective Juana Ni is a 23 year old male. Patient presents with: Ear Pain: R ear pain x 2 days Patient came in with complaints of right ear pain. Patient says been going on about 2 days. Patient denies any other symptoms such as sore throat, tooth pain, cough, sinus congestion. The history is provided by the patient. No bunker worker was used. Ear Pain Review of Systems Constitutional: Negative. HENT: Positive for ear pain. Objective BP 117/65 Pulse (!) 56 Temp 36.3 ?C (97.4 ?F) Resp 18 Wt 70 kg (154 lb 5.2 oz) SpO2 98% Physical Exam Constitutional: Appearance: Normal appearance. HENT: Right Ear: Tympanic membrane is erythematous and retracted. Left Ear: Tympanic membrane, ear canal and external ear normal. Mouth/Throat: Mouth: Mucous membranes are moist. Pharynx: Oropharynx is clear. Eyes: Pupils: Pupils are equal, round, and reactive to light. Cardiovascular: Rate and Rhythm: Normal rate and regular rhythm. Heart sounds: Normal heart sounds. Pulmonary: Effort: Pulmonary effort is normal. Breath sounds: Normal breath sounds. Neurological: Mental Status: He is alert. PAST MEDICAL HISTORY Diagnosis Date ADHD (attention deficit hyperactivity disorder) NEGATIVE HISTORY OF 2012 normal color vision Other abnormal heart sounds 02/2002 Dr Dang--Functional Heart murmur PAST SURGICAL HISTORY Procedure Laterality Date NONE ALLERGIES Patient has no known allergies. MEDICATIONS amoxicillin (AMOXIL) 875 mg tablet Take 1 tablet by mouth two times a day for 7 days. lisdexamfetamine (VYVANSE) 50 mg capsule Take 1 capsule by mouth once daily for 30 days. Earliest Fill Date: 03/03/18 (Patient not taking: Reported on 08/03/2024) lisdexamfetamine (VYVANSE) 50 mg capsule Take 1 capsule by mouth once daily for 30 days. Earliest Fill Date: 02/03/18 (Patient not taking: Reported on 01/24/2018) lisdexamfetamine (VYVANSE) 50 mg capsule Take 1 capsule by mouth once daily for 30 days. Earliest Fill Date: 12/05/17 (Patient not taking: Reported on 08/03/2024) cloNIDine HCl (CATAPRES) 0.1 mg tablet One tablet po qhs (Patient not taking: Reported on 02/13/2021) FAMILY HISTORY Problem Relation Age of Onset other (heart murmur) Maternal Grandmother other (myocardial infarction) Maternal Grandmother mggm other (paternal unknown) Maternal Grandmother Social History Tobacco Use Smoking status: Every Day Types: Cigarettes Smokeless tobacco: Never Tobacco comments: smokers inside Substance Use Topics Alcohol use: No Drug use: No {ASSESSMENT/PLAN: 1. Acute otitis media, right - ICD9: 382.9, ICD10: H66.91 - Will begin treatment with as per antibiotic as written, see orders - AMOXICILLIN 875 MG TABLET Ana Lilia Shanks APRN.[employer] LATHE OPERATOR MDM Procedures Allergies As of Date: 08/03/2024 (No Known Allergies) Date Reviewed: 08/03/2024 Reviewed by: Haydee Stanley LPN - Fully Assessed Reason for Visit: Ear Pain [817] Cmt: R ear pain x 2 days Primary Visit Diagnosis:Acute otitis media, right [H66.91] Order(s):amoxicillin (AMOXIL) 875 mg tabletTake 1 tablet by mouth two times a day for 7 days.Disp: 14 tabletRfl: 0 Prescriptions as of 08/03/2024 - amoxicillin (AMOXIL) 875 mg tablet Take 1 tablet by mouth two times a day for 7 days. - lisdexamfetamine (VYVANSE) 50 mg capsule Take 1 capsule by mouth once daily for 30 days. Earliest Fill Date: 03/03/18 - lisdexamfetamine (VYVANSE) 50 mg capsule Take 1 capsule by mouth once daily for 30 days. Earliest Fill Date: 02/03/18 - lisdexamfetamine (VYVANSE) 50 mg capsule Take 1 capsule by mouth once daily for 30 days. Earliest Fill Date: 12/05/17 - cloNIDine HCl (CATAPRES) 0.1 mg tablet One tablet po qhs Problem List As Of Date 08/03/2024 Noted Resolved Attention deficit hyperactivity disorder (ADHD)*08/13/2008 Other joint derangement, not elsewhere classifi*12/16/2014 10/03/2016 Pain in joint, lower leg [M25.569] 12/16/2014 10/03/2016 Prescriptions ordered this encounter Disp Refills Start End AMOXICILLIN 875 MG TABLET 14 t* 0 08/03/2024 08/10/2024 Route: ORAL Sig: Take 1 tablet by mouth two times a day for 7 days. Encounter Status:Closed by ANA LILIA SHANKS on 08/03/24 Normal [facility] Emergency Department Summary on 05-18-2024 Emergency Department Summary [facility] Medical Records Department [address] [place] [id number] Emergency Department Summary 05/18/24 MR#: [id number] Acct: [id number] Name: JUANA NI Rep #: [id number] : 2000 23 From: Rey Vela [employer] ANALYSTAbbie PCP: Care Physician,No Primary Status:DEP ER Location: ED HPI History of Present Illness Chief Complaint: Other, Pain/Inj Narrative Narrative: Patient is a 23-year-old male with no significant medical history. Patient resents the emerged part with left groin pain after slipping, doing a split on the ice today. Patient cannot go to work. Patient is worsening pain with flexion or extension of the left hip. Patient Nuys any other injury. Patient Nuys any history of the testicles, scrotum, penis. [facility] Medical History Heart murmur Home Medications ???Medication ???Instructions ???Recorded ???Last Taken ???Type ibuprofen 600 mg tablet 600 mg PO Q6H PRN PRN pain #20 05/18/24 Unknown Rx TABLETS Allergy/AdvReac Type Severity Reaction Status Date / Time No Known Allergies Allergy Verified 05/18/24 19:09 Surgical History Hx of tympanostomy tubes Social History household members: significant other and children Smoking Status: Current every day smoker tobacco type: e-cigarettes ROS ROS ED ROS Narrative Constitutional: Negative for fever, chills, weight loss, weakness Eyes: Negative for vision loss, vision change, double vision ENT: Negative for any sore throat, ear pain, congestion Cardiovascular: Negative for any chest pain, tightness, palpitations Respiratory: Negative for any cough, sputum production, hemoptysis, dyspnea, dyspnea on exertion, orthopnea Gastrointestinal: Negative for any abdominal pain, nausea, vomiting, diarrhea, constipation, blood in stool, blood in vomit : Negative for any urinary frequency, dysuria, retention, blood in urine Muscle skeletal: Negative for any neck pain, back pain. Positive for left groin strain Neurological: Negative for any headache, syncope, dizziness Skin: Negative for any rashes, itching, abrasions, lacerations Psychiatric: Negative for any depression, anxiety, stress, suicidal ideation, homicidal ideation Hematologic: Negative for any excessive bruising, easy bleeding EXAM Physical Exam Narrative Exam Narrative: Vital signs reviewed. HEET: Head normocephalic atraumatic, TMs clear bilaterally. Posterior pharynx is clear, moist mucous membranes. Nares clear bilaterally. Neck: Supple with no lymphadenopathy or tenderness. No signs of meningismus. Cardiac: Regular rate and rhythm no murmurs gallops or rubs, equal peripheral pulses bilaterally. Respiratory: Lungs clear to auscultation bilaterally. No chest tenderness. Abdomen: Soft, nontender, nondistended. No abdominal bruit or pulsatile masses. No hepatosplenomegaly Extremities: No peripheral edema, no signs of gross trauma or deformity. Active full range of motion of all extremities. Patient does have some pain with flexion and extension of the hip. Extensor mechanism is intact. Some pain on palpation. Some pain with extension against resistance. Neuro: Cranial nerves II through XII intact, no focal neurological deficits. Skin: Clean dry and intact with no rash, purpura, petechiae, vesicles or pustules. Backs/flank: No CVA tenderness, no midline spinal tenderness, no deformity. Psych: Normal mood and affect. No SI, HI or acute psychosis. Const Vital Signs: 05/18/24 19:09 05/18/24 20:09 Temperature 97.6 F L Temperature Source Oral Pulse Rate 74 Respiratory Rate 18 Respiratory Effort Normal Non-Labored Respiratory Pattern Normal Blood Pressure 109/72 Blood Pressure Mean 84 Pulse Ox 98 Oxygen Delivery Method Room Air Physical Exam Const Vital Signs: 05/18/24 19:09 05/18/24 20:09 Temperature 97.6 F L Temperature Source Oral Pulse Rate 74 Respiratory Rate 18 Respiratory Effort Normal Non-Labored Respiratory Pattern Normal Blood Pressure 109/72 Blood Pressure Mean 84 Pulse Ox 98 Oxygen Delivery Method Room Air [facility] Treatment and Re-Evaluation :: Differential diagnosis includes however is not limited to: Hip strain, quadricep tear, scrotal tear, hematoma Patient appears generally well, vital signs are stable, patient is nontoxic-appearing. Presenting to the emergency department with complaints of left groin pain after doing a split like motion slipping on the ice. Patient's pain is mostly towards the medial proximal quad. There is no evidence of any rupture, patient has good range of motion of the left leg. Patient will also get a work no (more content not included)... Normal [facility] 12-30-2023 [facility] Telephone ([facility]) JUANA NI ([id number]) 89 M Date Time Provider Department 12/30/23 SANJANA PUGH [facility] During your visit today, we recorded the following information about you: Sanjana Pugh PA 12/30/2023 7:17 AM Signed Negative for COVID flu RSV Florentin Pat MA 12/30/2023 7:41 AM Signed Patient does not have working phone, left message with DAVIS Tapia to have patient call in to receive results. NORMA Colón Alexandra, MA 12/30/2023 8:05 AM Signed Patient returned call, notified of results. Florentin Pat MA Allergies As of Date: 12/30/2023 (No Known Allergies) Date Reviewed: 12/29/2023 Reviewed by: Joyce Farah MA - Fully Assessed Reason for Visit: Results [95] Prescriptions as of 12/30/2023 - lisdexamfetamine (VYVANSE) 50 mg capsule Take 1 capsule by mouth once daily for 30 days. Earliest Fill Date: 03/03/18 - lisdexamfetamine (VYVANSE) 50 mg capsule Take 1 capsule by mouth once daily for 30 days. Earliest Fill Date: 02/03/18 - lisdexamfetamine (VYVANSE) 50 mg capsule Take 1 capsule by mouth once daily for 30 days. Earliest Fill Date: 12/05/17 - cloNIDine HCl (CATAPRES) 0.1 mg tablet One tablet po qhs Problem List As Of Date 12/30/2023 Noted Resolved Attention deficit hyperactivity disorder (ADHD)*08/13/2008 Other joint derangement, not elsewhere classifi*12/16/2014 10/03/2016 Pain in joint, lower leg [M25.569] 12/16/2014 10/03/2016 Encounter Status:Closed by FLORENTIN PAT on 12/30/23 [facility] CNOVon 12-29-2023 CNOV Office Visit ([facility] ) JUANA NI ([id number]) 89 M Date Time Provider Department 12/29/23 10:30 AM [facility] your visit today, we recorded the following information about you: Temperature Pulse Respiration Blood pressure 97.7 degrees 60/minute 20/minute 102/62 Weight 69.7 kg Julito Astudillo APRN.[employer] LATHE OPERATOR 12/29/2023 10:44 AM Signed Subjective HPI HPI Juana Ni is a 23 year old male who presents today for CC of cough, weakness. This started 1 day ago. Has tried nothing for relief. Symptoms are worsened by nothing. Risk factors close covid exposure. smoker. .Patient presents with: Exposed to Covid: Covid test PAST MEDICAL HISTORY No date: ADHD (attention deficit hyperactivity disorder) 2012: NEGATIVE HISTORY OF Comment: normal color vision 02/2002: Other abnormal heart sounds Comment: Dr Dang--Functional Heart murmur PAST SURGICAL HISTORY No date: NONE ALLERGIES Patient has no known allergies. MEDICATIONS lisdexamfetamine (VYVANSE) 50 mg capsule Take 1 capsule by mouth once daily for 30 days. Earliest Fill Date: 03/03/18 lisdexamfetamine (VYVANSE) 50 mg capsule Take 1 capsule by mouth once daily for 30 days. Earliest Fill Date: 02/03/18 (Patient not taking: Reported on 01/24/2018 ) lisdexamfetamine (VYVANSE) 50 mg capsule Take 1 capsule by mouth once daily for 30 days. Earliest Fill Date: 12/05/17 cloNIDine HCl (CATAPRES) 0.1 mg tablet One tablet po qhs (Patient not taking: Reported on 02/13/2021 ) FAMILY HISTORY Problem Relation Age of Onset other (heart murmur) Maternal Grandmother other (myocardial infarction) Maternal Grandmother mggm other (paternal unknown) Maternal Grandmother Social History Tobacco Use Smoking status: Every Day Types: Cigarettes Smokeless tobacco: Never Tobacco comments: smokers inside Substance Use Topics Alcohol use: No Drug use: No Review of Systems Constitutional: Positive for malaise/fatigue. Negative for fever. HENT: Negative for congestion, ear pain, nosebleeds and sore throat. Respiratory: Positive for cough and sputum production. Negative for shortness of breath and wheezing. Cardiovascular: Negative for chest pain. Musculoskeletal: Negative for neck pain. Skin: Negative for itching and rash. Objective Blood pressure 102/62, pulse 60, temperature 36.5 ?C (97.7 ?F), resp. rate 20, weight 69.7 kg (153 lb 10.6 oz), SpO2 99%. Physical Exam Constitutional: General: He is not in acute distress. Appearance: He is not toxic-appearing or diaphoretic. HENT: Head: Normocephalic and atraumatic. Cardiovascular: Rate and Rhythm: Normal rate and regular rhythm. Heart sounds: Normal heart sounds, S1 normal and S2 normal. Pulmonary: Effort: Pulmonary effort is normal. Breath sounds: Normal breath sounds. Lymphadenopathy: Cervical: No cervical adenopathy. Right cervical: No superficial cervical adenopathy. Left cervical: No superficial cervical adenopathy. Neurological: Mental Status: He is alert and oriented to person, place, and time. Gait: Gait is intact. ASSESSMENT/PLAN: 1. URI, acute - ICD9: 465.9, ICD10: J06.9 (primary diagnosis) - Discussed viral etiology and rationale for treatment. - Symptomatic treatment with prn analgesia - Supportive care with fluids and rest - Follow up in 3-5 days if symptoms persist or sooner if worsening of symptoms If positive is not interested in covid treatment. 2. Close exposure to COVID-19 virus - ICD9: V01.79, ICD10: Z20.822 CHATO Smith Jonathan, APRN.CNP 12/29/2023 11:55 AM Signed Addended by: JULITO ASTUDILLO on: 12/29/2023 11:55 AM Modules accepted: Orders Allergies As of Date: 12/29/2023 (No Known Allergies) Date Reviewed: 12/29/2023 Reviewed by: Joyce Farah MA - Fully Assessed Reason for Visit: Exposed to Covid [Other] Cmt: Covid test Primary Visit Diagnosis:URI, acute [J06.9] Other Visit Diagnosis:Close exposure to COVID-19 virus [Z20.822] Order(s):COVID AND INFLUENZA A/B AND RSV PCR, ROUTINE [SQCVFLRS] Order #: [id number]. #:[id number] Prescriptions as of 12/29/2023 - lisdexamfetamine (VYVANSE) 50 mg capsule Take 1 capsule by mouth once daily for 30 days. Earliest Fill Date: 03/03/18 - lisdexamfetamine (VYVANSE) 50 mg capsule Take 1 capsule by mouth once daily for 30 days. Earliest Fill Date: 02/03/18 - lisdexamfetamine (VYVANSE) 50 mg capsule Take 1 capsule by mouth once daily for 30 days. Earliest Fill Date: 12/05/17 - cloNIDine HCl (CATAPRES) 0.1 mg tablet One tablet po qhs Problem List As Of Date 12/29/2023 Noted Resolved Attention deficit hyperactivity disorder (ADHD)*08/13/2008 Other joint derangement, not elsewhere classifi*12/16/2014 10/03/2016 Pain in joint, lower leg [M25.569] 12/16/2014 10/03/2016 Letter Text Encounter Status:Closed by RA ASTUDILLO (more content not included)... Normal [facility] COVID AND INFLUENZA A/B AND RSV PCR, ROUTINEon 12-29-2023 SARS-CoV-2 (COVID-19) RNA SHELBY+probe Ql (Unsp spec) SARS-COV-2 (AGENT OF COVID-19) RNA: Not detected INFLUENZA A RNA: Not detected INFLUENZA B RNA: Not detected RESPIRATORY SYNCYTIAL VIRUS (RSV) RNA: Not detected Normal [facility] Comment on above: Performed By: #### C VFLRS #### [facility] CLIA [id number] [address] [place] [address] [place] HAND RT MIN 3 VIEWSon 2022 HAND RT MIN 3 VIEWS [place] [address] Patient: JUANA NI Phone#: : 2000 Age: 21 Gender: M Pt. Type: ER Account: [id number] Location: [email or web address] Exam Date: 11/03/2022/4:03 Family Phys: Charge Code: [id number] Physician: Pen[place] Order #: [id number] Dose#: PROCEDURE: X-RAY HAND RT COMPLETE MIN 3 VIEWS COMPARISON: None. INDICATIONS: Trauma. FINDINGS: BONES: Normal. No significant arthropathy or acute abnormality. SOFT TISSUES: Negative. No visible soft tissue swelling. EFFUSION: None visible. OTHER: Negative. CONCLUSION: No acute disease. Dictated by: Joyce Diallo MD on 11/03/2022 at 9:45 Approved by: Joyce Diallo MD on 11/03/2022 at 9:46 Normal [facility] Influenza virus A and B and SARS-CoV-2 (COVID-19) Ag panel - Upper respiratory specimOrdered By: Dr. Spain on 08-28-2022 SARS-CoV-2 (COVID-19) RNA SHELBY+probe Ql (Resp) [facility] Emergency Room Note on 10-18-2017 [facility] [facility] Note Normal [facility] ([place]) Pat Eduon 10-18-2017 Pat Edu Normal [facility] [place] Patient Summary Documentson 10-18-2017 Patient Summary Documents Normal [facility] [place] XR WRIST MINIMUM 3 VIEWS RIG HTon 10-18-2017 XR WRIST MINIMUM 3 VIEWS RIGHT ORIGINALXR WRIST MINIMUM 3 VIEWS RIGHT CLINICAL STATEMENT: fall. COMPARISON: None FINDINGS: No acute fracture or dislocation is identified. The joint spaces are maintained. There is no radiopaque foreign body. IMPRESSION: No acute fracture or dislocation. Interpreted By: Aravind Archuleta MDPreliminary Report By: Aravind Archuleta MDElectronically Signed By: Aravind Archuleta MD Dictated Date: 10/18/2017 12:20:19 AM Prelim Date: 10/18/2017 12:20:19 AM Sign Date: 10/18/2017 12:20:37 AM Normal [facility] ([place]) .Auto Diffon 02-26-2017 Basophils Auto #/vol (Bld) 0.10 10 3/mcL Normal 0.00-0.19 [facility] ([place]) Comment on above: Performed By: #### C DILLON DAVIDSON ANEU, BMP ####[address] [place], [place] [address] Basophils/100 WBC Auto (Bld) 0.5 % Normal 0.0-2.5 [facility] ([place]) Comment on above: Performed By: #### C DILLON DAVIDSON ANEU, BMP ####[address] [place], [place] [address] Eosinophils 0.20 10 3/mcL Normal 0.00-0.40 [facility] ([place]) Comment on above: Performed By: #### C DILLON DAVIDSON ANEU, BMP ####[address] [place], [place] [address] Eosinophils/100 leukocytes 2.0 % Normal 0.0-7.0 [facility] ([place]) Comment on above: Performed By: #### C DILLON DVAIDSON, ANEU, BMP ####[address] [place], [place] [address] Lymphocytes 2.90 10 3/mcL Normal 0.77-3.85 [facility] ([place]) Comment on above: Performed By: #### C DILLON DAVIDSON, ANEU, BMP ####[address] [place], [place] [address] Lymphocytes/100 leukocytes 28.3 % Normal 10.0-50.0 [facility] ([place]) Comment on above: Performed By: #### C DILLON DAVIDSON, ANEU, BMP ####[address] [place], [place] [address] Monocytes 0.80 10 3/mcL Normal 0.15-1.00 [facility] ([place]) Comment on above: Performed By: #### C DILLON DAVIDSON, ANEU, BMP ####[address] [place], [place] [address] Monocytes/100 leukocytes 8.2 % Normal 1.7-13.0 [facility] ([place]) Comment on above: Performed By: #### C DILLON DAVIDSON, ANEU, BMP ####[address] [place], [place] [address] Neutrophils/100 WBC Auto (Bld) 61.0 % Normal 37.0-80.0 [facility] ([place]) Comment on above: Performed By: #### C LETY, DILLON, ANEU, BMP ####[address] [place], [place] [address] .NEUABSon 02-26-2017 Neutrophils 6.20 10 3/mcL High 2.85-6.16 [facility] ([place]) Comment on above: Performed By: #### C LETY, DILLON, ANEU, BMP ####[address] [place], [place] [address] BMPon 02-26-2017 Glucose mass conc 95 mg/dL Normal 70-105 [facility] ([place]) Comment on above: Performed By: #### C DILLON DAVIDSON ANEU, BMP ####[address] [place], [place] [address] BUN/Creatinine Ratio 21 ratio Normal 7-27 [facility] ([place] Comment on above: Performed By: #### C DILLON DAVIDSON ANEU, BMP ####[address] [place], [place] [address] Calcium 9.5 mg/dL Normal 8.4-10.2 [facility] ([place]) Comment on above: Performed By: #### C DILLON DAVIDSON ANEU, BMP ####[address] [place], [place] [address] Chloride 101 mmol/L Normal 98-107 [facility] ([place]) Comment on above: Performed By: #### C DILLON DAVIDSON ANEU, BMP ####[address] [place], [place] [address] CO2 30 mmol/L High 22-29 [facility] ([place]) Comment on above: Performed By: #### C DILLON DAVIDSON ANEU, BMP ####[address] [place], [place] [address] Creatinine 0.7 mg/dL Normal 0.6-1.2 [facility] ([place]) Comment on above: Performed By: #### DILLON PEÑA ANEU, BMP ####[address] [place], [place] [address] Electrolyte Balance 9.0 mEq/L Normal [facility] ([place]) Comment on above: Performed By: #### C DILLON DAVIDSON, ANEU, BMP ####[address] [place], [place] [address] Potassium molar conc 3.8 mmol/L Normal 3.5-5.1 [facility] ([place]) Comment on above: Performed By: #### C DILLON DAVIDSON, ANEU, BMP ####[address] [place], [place] [address] Sodium 140 mmol/L Normal 136-146 [facility] ([place]) Comment on above: Performed By: #### C DILLON DAVIDSON ANEU, BMP ####[address] [place], [place] [address] Urea nitrogen 14.9 mg/dL Normal 7.0-18.0 [facility] ([place]) Comment on above: Performed By: #### C DILLON DAVIDSON ANEU, BMP ####[address] [place], [place] [address] CBCon 02-26-2017 Erythrocyte distribution width Auto Ratio (RBC) 13.7 % Normal 11.5-14.5 [facility] ([place]) Comment on above: Performed By: #### C DILLON DAVIDSON ANEU, BMP ####[address] [place], [place] [address] Erythrocytes (RBC) 4.88 10 6/mcL Normal 4.04-6.13 [facility] ([place]) Comment on above: Performed By: #### C DILLON DAVIDSON ANEU, BMP ####[address] [place], [place] [address] Hematocrit (HCT) 41.3 % Low 42.0-52.0 [facility] ([place]) Comment on above: Performed By: #### C DILLON DAVIDSON ANEU, BMP ####[address] [place], [place] [address] Hemoglobin mass conc (Bld) 14.3 G/dL Normal 14.0-18.0 [facility] ([place]) Comment on above: Performed By: #### C DILLON DAVIDSON ANEU, BMP ####[address] [place], [place] [address] MCH 29.4 pg Normal 27.0-31.2 [facility] ([place]) Comment on above: Performed By: #### C DILLON DAVIDSON ANEU, BMP ####[address] [place], [place] [address] MCHC mass conc (RBC) 34.6 G/dL Normal 31.8-35.4 [facility] ([place]) Comment on above: Performed By: #### C DILLON DAVIDSON ANEU, BMP ####[address] [place], [place] [address] MCV 84.8 fL Normal 80.0-94.0 [facility] ([place]) Comment on above: Performed By: #### C DILLON DAVIDSON ANEU, BMP ####[address] [place], [place] [address] Platelet mean volume (PMV) 8.4 fL Normal 7.4-10.4 [facility]) Comment on above: Performed By: #### C DILLON DAVIDSON ANEU, BMP ####[address] [place], [place] [address] Platelets 179 10 3/mcL Normal 130-400 [facility] ([place]) Comment on above: Performed By: #### C DILLON DAVIDSON ANEU, BMP ####[address] [place], [place] [address] WBC (Leukocytes) 10.10 10 3/mcL Normal 4.60-10.80 [facility]) Comment on above: Performed By: #### C DILLON DAVIDSON ANEU, BMP ####[address] [place], [place] [address] MONOon 02-26-2017 Monocytes Negative Normal Negative [facility]) Comment on above: Performed By: #### M LISA ####[address] [place], [place] [address] [facility] Note on 02-26-2017 [facility] Note Normal [facility] ([place]) Patient Summary Documentson 02-26-2017 Patient Summary Documents Normal [facility] ([place]) Vital Signs Date Time Vital Sign Value Performing Clinician Facility 11-15-2024 22:45-0400 Body temperature 98 [degF] No Primary Care Physician [facility] 11-15-2024 22:45-0400 Diastolic blood pressure 65 mm[Hg] No Primary Care Physician [facility] 11-15-2024 22:45-0400 Heart rate 72 /min No Primary Care Physician [facility] 11-15-2024 22:45-0400 Respiratory rate 18 /min No Primary Care Physician [facility] 11-15-2024 22:45-0400 SaO2% (BldA) [Mass fraction] 98 % No Primary Care Physician [facility] 11-15-2024 22:45-0400 Systolic blood pressure 110 mm[Hg] No Primary Care Physician [facility] 11-15-2024 22:18-0400 Body height 185.42 cm No Primary Care Physician [facility] 11-15-2024 22:18-0400 Body mass index (BMI) [Ratio] 20 kg/m2 No Primary Care Physician [facility] 11-15-2024 22:18-0400 Body weight 68.67 kg No Primary Care Physician [facility] 10-21-2024 10:45-0400 Body temperature 97.39 [degF] Krislyn Aberegg PA Work Phone: [facility] 10-21-2024 10:45-0400 Body weight 72.1 kg Krislyn Aberegg PA Work Phone: [facility] 10-21-2024 10:45-0400 Diastolic blood pressure 80 mm[Hg] Krislyn Aberegg PA Work Phone: [facility] 10-21-2024 10:45-0400 Heart rate 54 /min Krislyn Aberegg PA Work Phone: [facility] 10-21-2024 10:45-0400 Respiratory rate 18 /min Krislyn Aberegg PA Work Phone: [facility] 10-21-2024 10:45-0400 SaO2% (BldA) [Mass fraction] 99 % Krislyn Aberegg PA Work Phone: [facility] 10-21-2024 10:45-0400 Systolic blood pressure 133 mm[Hg] Krislyn Aberegg PA Work Phone: [facility] 10-15-2024 09:54-0400 Body temperature 95.9 [degF] No Primary Care Physician [facility] 10-15-2024 09:54-0400 Diastolic blood pressure 80 mm[Hg] No Primary Care Physician [facility] 10-15-2024 09:54-0400 Heart rate 56 /min No Primary Care Physician [facility] 10-15-2024 09:54-0400 Respiratory rate 18 /min No Primary Care Physician [facility] 10-15-2024 09:54-0400 SaO2% (BldA) [Mass fraction] 99 % No Primary Care Physician [facility] 10-15-2024 09:54-0400 Systolic blood pressure 117 mm[Hg] No Primary Care Physician [facility] 10-15-2024 09:52-0400 Body height 185.42 cm No Primary Care Physician [facility] 10-15-2024 09:52-0400 Body mass index (BMI) [Ratio] 20.9 kg/m2 No Primary Care Physician [facility] 10-15-2024 09:52-0400 Body weight 72.12 kg No Primary Care Physician [facility] 08-08-2024 04:55-0400 Body height 185.42 cm No Primary Care Physician [facility] 08-08-2024 04:55-0400 Body mass index (BMI) [Ratio] 20.9 kg/m2 No Primary Care Physician [facility] 08-08-2024 04:55-0400 Body temperature 97.8 [degF] No Primary Care Physician [facility] 08-08-2024 04:55-0400 Body weight 71.9 kg No Primary Care Physician [facility] 08-08-2024 04:55-0400 Diastolic blood pressure 74 mm[Hg] No Primary Care Physician [facility] 08-08-2024 04:55-0400 Heart rate 55 /min No Primary Care Physician [facility] 08-08-2024 04:55-0400 Respiratory rate 16 /min No Primary Care Physician [facility] 08-08-2024 04:55-0400 SaO2% (BldA) [Mass fraction] 99 % No Primary Care Physician [facility] 08-08-2024 04:55-0400 Systolic blood pressure 137 mm[Hg] No Primary Care Physician [facility] 08-03-2024 10:45-0400 Body temperature 97.39 [degF] Ana Lilia Shanks APRN.[employer]OD CARVING LATHE OPERATOR Work Phone: [facility] 04-11-2025 10:45-0400 Body weight 70 kg Ana Lilia Shanks APRN.WOOD [employer]VING LATHE OPERATOR Work Phone: [facility] 08-03-2024 10:45-0400 Diastolic blood pressure 65 mm[Hg] Ana Lilia Shakns APRN.WOOD CARVING LATHE OPERATOR Work Phone: [facility] 08-03-2024 10:45-0400 Heart rate 56 /min Ana Lilia Shanks APRN.WOOD CARVING LATHE OPERATOR Work Phone: [facility] 08-03-2024 10:45-0400 Respiratory rate 18 /min Ana Lilia Shanks APRN.WOOD CARVING LATHE OPERATOR Work Phone: [facility] 08-03-2024 10:45-0400 SaO2% (BldA) [Mass fraction] 98 % Ana Lilia Shanks APRN.WOOD CARVING LATHE OPERATOR Work Phone: [facility] 08-03-2024 10:45-0400 Systolic blood pressure 117 mm[Hg] Ana Lilia Shanks APRN.WOOD CARVING LATHE OPERATOR Work Phone: [facility] 05-18-2024 19:09-0500 Body mass index (BMI) [Ratio] 22 kg/m2 No Primary Care Physician [facility] 05-18-2024 19:09-0500 Body temperature 97.6 [degF] No Primary Care Physician [facility] 05-18-2024 19:09-0500 Body weight 75.7 kg No Primary Care Physician [facility] 05-18-2024 19:09-0500 Diastolic blood pressure 72 mm[Hg] No Primary Care Physician [facility] 05-18-2024 19:09-0500 Heart rate 74 /min No Primary Care Physician [facility] 05-18-2024 19:09-0500 Respiratory rate 18 /min No Primary Care Physician [facility] 05-18-2024 19:09-0500 SaO2% (BldA) [Mass fraction] 98 % No Primary Care Physician [facility] 05-18-2024 19:09-0500 Systolic blood pressure 109 mm[Hg] No Primary Care Physician [facility] 12-29-2023 10:25-0400 Body temperature 97.7 [degF] Julito Astudillo APRN.[employer]VING LATHE OPERATOR Work Phone: [facility] 12-29-2023 10:25-0400 Body weight 69.7 kg Julito Astudillo ELECTRIC CONTAINER TESTER.[employer]ING LATHE OPERATOR Work Phone: [facility] 12-29-2023 10:25-0400 Diastolic blood pressure 62 mm[Hg] Julito Astudillo ELECTRIC CONTAINER TESTER.WOOD CARVING LATHE OPERATOR Work Phone: [facility] 12-29-2023 10:25-0400 Heart rate 60 /min Julito Astudillo ELECTRIC CONTAINER TESTER.WOOD CARVING LATHE OPERATOR Work Phone: [facility] 12-29-2023 10:25-0400 Respiratory rate 20 /min Julito Astuidllo ELECTRIC CONTAINER TESTER.WOOD CARVING LATHE OPERATOR Work Phone: [facility] 12-29-2023 10:25-0400 SaO2% (BldA) [Mass fraction] 99 % Julito Astudillo ELECTRIC CONTAINER TESTER.WOOD CARVING LATHE OPERATOR Work Phone: [facility] 12-29-2023 10:25-0400 Systolic blood pressure 102 mm[Hg] Julito Astudillo ELECTRIC CONTAINER TESTER.WO[employer] CARVING LATHE OPERATOR Work Phone: [facility] 08-28-2022 02:08-0400 Body height 185.42 cm [facility] 08-28-2022 02:08-0400 Body mass index (BMI) [Ratio] 20.1 kg/m2 [facility] 08-28-2022 02:08-0400 Body temperature 99.5 [degF] [facility] 08-28-2022 02:08-0400 Body weight 69.2 kg [facility] 08-28-2022 02:08-0400 Diastolic blood pressure 57 mm[Hg] [facility] 08-28-2022 02:08-0400 Heart rate 75 /min [facility] 08-28-2022 02:08-0400 Respiratory rate 16 /min [facility] 08-28-2022 02:08-0400 SaO2% (BldA) [Mass fraction] 99 % [facility] 08-28-2022 02:08-0400 Systolic blood pressure 115 mm[Hg] [facility] 07-19-2022 08:40-0400 Respiratory rate 14 /min [facility] 07-19-2022 07:54-0400 Body height 185.42 cm [facility] 07-19-2022 07:54-0400 Body mass index (BMI) [Ratio] 20.4 kg/m2 [facility] 07-19-2022 07:54-0400 Body temperature 97.4 [degF] [facility] 07-19-2022 07:54-0400 Body weight 70.3 kg [facility] 07-19-2022 07:54-0400 Diastolic blood pressure 65 mm[Hg] [facility] 07-19-2022 07:54-0400 Heart rate 55 /min [facility] 07-19-2022 07:54-0400 SaO2% (BldA) [Mass fraction] 98 % [facility] 07-19-2022 07:54-0400 Systolic blood pressure 133 mm[Hg] [facility] Encounters Encounter Date Encounter Type Care Provider Facility Start: 11-15-2024 End: 11-15-2024 Emergency department patient visit No Primary Care Physician -Emergency Department Work Phone: Start: 10-21-2024 End: 10-21-2024 Patient encounter procedure Sanjana WLYIE Work Phone: [facility] Comment on above: Dental infection (Pr imary Dx); Dental caries Start: 10-21-2024 End: 10-21-2024 ambulatory SANJANA PUGH Facility:[facility] Start: 10-15-2024 End: 10-15-2024 Emergency department patient visit No Primary Care Physician -Emergency Department Work Phone: Start: 08-08-2024 End: 08-08-2024 Emergency department patient visit No Primary Care Physician -Emergency Department Work Phone: Start: 08-03-2024 End: 08-03-2024 ambulatory SANJANA PUGH Facility:[facility] Start: 08-03-2024 End: 08-03-2024 Patient encounter procedure Ana Lilia Shanks APRN.CNP Work Phone: [facility] Comment on above: Acute otitis media, right (Primary Dx) Start: 05-18-2024 End: 05-18-2024 Emergency department patient visit Dr. Christina Martinez DO -Emergency Department Work Phone: Start: 12-30-2023 End: 12-30-2023 Telephone encounter Sanjana WYLIE Work Phone: [facility] Comment on above: Results Start: 12-29-2023 End: 12-29-2023 ambulatory [facility] Facility:[facility] Start: 12-29-2023 End: 12-29-2023 Patient encounter procedure Julito King CHATO Work Phone: [facility] Comment on above: URI, acute (Primary Dx); Close exposure to COVID-19 virus Start: 11-03-2022 End: 11-03-2022 Emergency department patient visit [facility] Start: 08-28-2022 End: 08-28-2022 Emergency department patient visit [facility] Start: 07-19-2022 End: 07-19-2022 [facility] Start: 10-18-2017 End: 10-18-2017 Emergency department patient visit CARMEN HARINI Facility:[facility] Start: 02-26-2017 End: 02-26-2017 Emergency department patient visit TAWNY ISH Facility:[facility] Procedures Date Procedure Procedure Detail Performing Clinician Start: 08-28-2022 Plain chest X-ray SARS-CoV-2 & FLU Ant igen (Rapid) Plan of Treatment Date Care Activity Detail Author Start: 11-03-2032 Urine microalbumin profile DTaP,Tdap,Td Vaccine (8 - Td or Tdap) [facility] Start: 12-24-2024 Influenza vaccination Influenz a Vaccine (Season Ended) [facility] Start: 11-15-2024 [facility] Start: 08-08-2024 [facility] Start: 12-25-2023 Covid-19 Vaccine ( season) Covid-19 Vaccine () [facility] Start: 12-25-2023 Covid-19 Vaccine ( season) Covid-19 Vaccine ( season) [facility] Start: 12-25-2023 Influenza vaccination Influenza Vacc ine (#1) [facility] Start: 12-27-2018 Pneumococcal vaccination Pneum ococcal Vaccine (1 of 2 - PCV) [facility] Start: 12-27-2017 Anxiety Screening Anxiety Screening [facility] Start: 12-27-2017 Depression Screening Depression Scre ening [facility] Start: 12-27-2017 Hepatitis C screening Hepatitis C Sc reening [facility] Start: 12-27-2017 HIV screening HIV Screening [facility] Start: 04-30-2017 HPV Vaccine (3 - Mal e 3-dose series) HPV Vaccine (3 - Male 3-dose series) [facility] Start: 2015 Meningococcal B Vacc ine: Consider Based On Risk (1 of 2 - Patient Seeks Protection) Meningococcal B Vaccine: Consider Based On Risk (1 of 2 - Patient Seeks Protection) [facility] Start: 12-27-2013 Peds To Adult Transi tion Annual Assessment Peds To Adult Transition Annual Assessment [facility] Start: 2011 Peds To Adult Transi tion Initial Discussion Peds To Adult Transition Initial Discussion [facility] Start: 12-27-2005 Pneumococcal vaccination Pneum ococcal Vaccine (1 of 2 - PCV) [facility] COVID & INFLUENZA A/ B & RSV PCR, ROUTINE COVID & INFLUENZA A/B & RSV PCR, ROUTINE Microbiology Routine URI, acute Close exposure to COVID-19 virus Ordered: 12/29/2023 [facility] Work Phone: Comment on above: Ordered: 12/29/2023 Patient Education [facility] Work Phone: Patient referral [facility] Work Phone: Immunizations Immunization Date Immunization Notes Care Provider Candice guerrero 12-29-2016 Human Papillomavirus 9-valent vaccine Julito Astudillo APRN.WO[employer] CARVING LATHE OPERATOR Work Phone: [facility] 09-28-2016 Human Papillomavirus 9-valent vaccine Julito Astudillo APRN.WOOD CARVING LATHE OPERATOR Work Phone: [facility] 09-28-2016 meningococcal polysaccharide (groups A, C, Y and W-135) diphtheria toxoid conjugate vaccine (MCV4P) Julito Astudillo APRN.WOOD CARVING LATHE OPERATOR Work Phone: [facility] 12-05-2012 varicella virus vaccine Scottjenn torres Baudilio ELECTRIC CONTAINER TESTER.WOOD CARVING LATHE OPERATOR Work Phone: [facility] 07-29-2011 Meningococcal, MCV4, unspecified conjugate formulation(groups A, C, Y and W-135) Julito Astudillo APRN.WOOD CARVING LATHE OPERATOR Work Phone: [facility] 07-29-2011 tetanus toxoid, redu herbert diphtheria toxoid, and acellular pertussis vaccine, adsorbed Julito Astudillo ELECTRIC CONTAINER TESTER.WOOD CARVING LATHE OPERATOR Work Phone: [facility] Work Phone: 03-16-2010 influenza virus vacc ine, unspecified formulation Julito Astudillo ELECTRIC CONTAINER TESTER.WOOD CARVING LATHE OPERATOR Work Phone: [facility] 2004 hepatitis B vaccine, pediatric or pediatric/adolescent dosage Julito Astudillo ELECTRIC CONTAINER TESTER.WOOD CARVING LATHE OPERATOR Work Phone: [facility] 08-11-2004 diphtheria, tetanus toxoids and acellular pertussis vaccine Julito Baudilio ELECTRIC CONTAINER TESTER.WOOD CARVING LATHE OPERATOR Work Phone: [facility] 08-11-2004 measles, mumps and rubella virus vaccine Julito Baudilio ELECTRIC CONTAINER TESTER.WOOD CARVING LATHE OPERATOR Work Phone: [facility] 08-11-2004 poliovirus vaccine, inactivated Julito Astudillo ELECTRIC CONTAINER TESTER.WOOD CARVING LATHE OPERATOR Work Phone: [facility] 08-30-2001 diphtheria, tetanus toxoids and acellular pertussis vaccine Julito Baudilio ELECTRIC CONTAINER TESTER.WOOD CARVING LATHE OPERATOR Work Phone: [facility] 08-30-2001 haemophilus influenz ae type b vaccine, HbOC conjugate Julito Astudillo ELECTRIC CONTAINER TESTER.WOOD CARVING LATHE OPERATOR Work Phone: [facility] 12-29-2000 measles, mumps and rubella virus vaccine Julito Baudilio ELECTRIC CONTAINER TESTER.WOOD CARVING LATHE OPERATOR Work Phone: [facility] 12-29-2000 poliovirus vaccine, inactivated Julito Astudillo ELECTRIC CONTAINER TESTER.WOOD CARVING LATHE OPERATOR Work Phone: [facility] 12-29-2000 varicella virus vaccine Scott Astudillo ELECTRIC CONTAINER TESTER.WOOD CARVING LATHE OPERATOR Work Phone: [facility] 09-24-2000 pneumococcal conjuga te vaccine, 7 valent Julito Baudilio ELECTRIC CONTAINER TESTER.WOOD CARVING LATHE OPERATOR Work Phone: [facility] 09-23-2000 hepatitis B vaccine, pediatric or pediatric/adolescent dosage Julito Baudilio ELECTRIC CONTAINER TESTER.WOOD CARVING LATHE OPERATOR Work Phone: [facility] 06-29-2000 diphtheria, tetanus toxoids and acellular pertussis vaccine Julito Baudilio ELECTRIC CONTAINER TESTER.WOOD CARVING LATHE OPERATOR Work Phone: [facility] 06-29-2000 haemophilus influenz ae type b vaccine, HbOC conjugate Julito Baudilio ELECTRIC CONTAINER TESTER.WOOD CARVING LATHE OPERATOR Work Phone: [facility] 06-29-2000 pneumococcal conjuga te vaccine, 7 valent Julito Baudilio ELECTRIC CONTAINER TESTER.WOOD CARVING LATHE OPERATOR Work Phone: [facility] 05-05-2000 diphtheria, tetanus toxoids and acellular pertussis vaccine Julito Baudilio ELECTRIC CONTAINER TESTER.WOOD CARVING LATHE OPERATOR Work Phone: [facility] 05-05-2000 haemophilus influenz ae type b vaccine, HbOC conjugate Julito Baudilio ELECTRIC CONTAINER TESTER.WOOD CARVING LATHE OPERATOR Work Phone: [facility] 05-05-2000 pneumococcal conjuga te vaccine, 7 valent Julito Baudilio ELECTRIC CONTAINER TESTER.WOOD CARVING LATHE OPERATOR Work Phone: [facility] 05-05-2000 poliovirus vaccine, inactivated Julito Baudilio ELECTRIC CONTAINER TESTER.WOOD CARVING LATHE OPERATOR Work Phone: [facility] 02-26-2000 diphtheria, tetanus toxoids and acellular pertussis vaccine Julito Baudilio ELECTRIC CONTAINER TESTER.WOOD CARVING LATHE OPERATOR Work Phone: [facility] 02-26-2000 haemophilus influenz ae type b vaccine, HbOC conjugate Julito Baudilio ELECTRIC CONTAINER TESTER.WOOD CARVING LATHE OPERATOR Work Phone: [facility] 02-26-2000 poliovirus vaccine, inactivated Julito Baudilio ELECTRIC CONTAINER TESTER.WOOD CARVING LATHE OPERATOR Work Phone: [facility] 01-25-2000 hepatitis B vaccine, pediatric or pediatric/adolescent dosage Julito Baudilio ELECTRIC CONTAINER TESTER.WOOD CARVING LATHE OPERATOR Work Phone: [facility] Payers Date Payer Category Payer Self-pay [id number] 2022 Medicaid [id number] 2022 Unknown [id number] ad [id number] 2013 Medicaid [id number] 1999 Unknown [id number] Unknown [id number] Unknown [id number] Unknown [id number] Unknown [id number] Unknown [id number] Social History Date Type Detail Facility Start: 07-19-2022 End: 08-28-2022 Tobacco smoking status DCIS Unknown if ever smoked [facility] Start: 11-02-2019 None [facility] Start: 2000 Sex Assigned At Male [facility] Start: 12-29-2023 End: 11-15-2024 Tobacco smoking status DCIS Smokes tobacco daily [facility] History of tobacco use Cigarette Smoker [facility] Start: 12-29-2023 Tobacco use and exposure Smokeless tobacco non-user [facility] Start: 12-29-2023 End: 10-21-2024 Alcoholic beverage intake Current non-drinker of alcohol (finding) [facility] Start: 03-30-2020 End: 12-29-2023 History of Social function [facility] Start: 03-30-2020 End: 12-29-2023 Tobacco use panel [facility] National Score (1-10 0), lower number is lower risk Not on file [facility] Start: 12-29-2023 Tobacco Comment smokers inside [facility] Start: 1999 Sex assigned at Not on file [facility] Start: 08-08-2024 Sex Male (finding) [facility] Functional Status Date Assessment Result Facility 11-26-2014 Are you deaf, or do you have serious difficulty hearing No 11/26/2014 4:00 PM EDT Joie Mitchell Ma No [facility] 11-26-2014 Are you blind, or do you have serious difficulty seeing, even when wearing glasses No 11/26/2014 4:00 PM EDT Joie Mitchell Ma No [facility] 11-26-2014 Do you have serious difficulty walking or climbing stairs No 11/26/2014 4:00 PM EDT Joie Mitchell Ma No [facility] 11-26-2014 Do you have difficul ty dressing or bathing No 11/26/2014 4:00 PM EDT Joie Mitchell Ma [facility] Mental Status Date Assessment Result Facility 08-08-2024 Cognitive function Level Of Cons ciousness Awake;Alert;Appropriate;Fol lows Commands [facility] Work Phone: 05-18-2024 Cognitive function Level Of Cons ciousness Awake;Alert;Appropriate;Fol lows Commands [facility] Work Phone: 11-26-2014 Because of a physica l, mental, or emotional condition, do you have serious difficulty concentrating, remembering, or making decisions No 11/26/2014 4:00 PM EDT Joie Mitchell Ma No [facility] Clinical Notes 12-29-2023 to 10-21-2024 Sanjana Pugh PA - 10/21/2024 10:51 AM Ana Lilia Read APRN.LIAM - 08/03/2024 10:57 AM EDTTelephone Encounter - Florentin aPt MA - 12/30/2023 8:05 AM EDT Note Date & Type Note Facility 10-21-2024 Note HNO ID: [id number] Author: SANJANA PUGH PA Service: ? Author Type: Physician [employer] Specialist Type: Progress Notes Filed: 10/21/2024 10:52 Note Text: [facility] Subjective Juana Ni is a 23 year old male. Patient presents with: Dental Problem: R tooth pain and swelling x2 days HPI Dental Pain: - Onset: Approximately one week ago. - Location: Upper and lower teeth, with radiation to the ear. - Severity: Described as so bad; not relieved by Tylenol or ibuprofen. - Denies history of dental infections. - Unable to secure a dental appointment until March; actively seeking an earlier appointment. - No known medication allergies. PAST MEDICAL HISTORY Diagnosis Date ADHD (attention deficit hyperactivity disorder) NEGATIVE HISTORY OF 2012 normal color vision Other abnormal heart sounds 02/2002 Dr Dang--Functional Heart murmur PAST SURGICAL HISTORY Procedure Laterality Date NONE ALLERGIES Patient has no known allergies. MEDICATIONS amoxicillin (AMOXIL) 875 mg tablet Take 1 tablet by mouth two times a day for 5 days. lisdexamfetamine (VYVANSE) 50 mg capsule Take 1 capsule by mouth once daily for 30 days. Earliest Fill Date: 03/03/18 (Patient not taking: Reported on 08/03/2024) lisdexamfetamine (VYVANSE) 50 mg capsule Take 1 capsule by mouth once daily for 30 days. Earliest Fill Date: 02/03/18 (Patient not taking: Reported on 01/24/2018) lisdexamfetamine (VYVANSE) 50 mg capsule Take 1 capsule by mouth once daily for 30 days. Earliest Fill Date: 12/05/17 (Patient not taking: Reported on 08/03/2024) cloNIDine HCl (CATAPRES) 0.1 mg tablet One tablet po qhs (Patient not taking: Reported on 02/13/2021) FAMILY HISTORY Problem Relation Age of Onset other (heart murmur) Maternal Grandmother other (myocardial infarction) Maternal Grandmother mggm other (paternal unknown) Maternal Grandmother Social History Tobacco Use Smoking status: Every Day Types: Cigarettes Smokeless tobacco: Never Tobacco comments: smokers inside Substance Use Topics Alcohol use: No Drug use: No Review of Systems Ears/Nose/Mouth/Throat: (+) dental pain, (+) ear pain Objective BP 133/80 Pulse (!) 54 Temp 36.3 ?C (97.4 ?F) Resp 18 Wt 72.1 kg (158 lb 15.2 oz) SpO2 99% Physical Exam Vitals reviewed. Constitutional: General: He is not in acute distress. Appearance: Normal appearance. He is not toxic-appearing. HENT: Right Ear: Tympanic membrane and ear canal normal. Left Ear: Tympanic membrane and ear canal normal. Mouth/Throat: Mouth: Mucous membranes are moist. Dentition: Abnormal dentition. Dental tenderness, gingival swelling and dental caries present. No dental abscesses. Comments: Patient has diffuse dental decay with dental caries. Tooth #1 is decayed down to the gumline with gingival swelling. Tooth #32 is also tender to touch with decay and gum swelling. No trismus. Handling secretions. No tongue or floor mouth swelling. Cardiovascular: Rate and Rhythm: Normal rate and regular rhythm. Pulmonary: Effort: Pulmonary effort is normal. Breath sounds: Normal breath sounds. Skin: General: Skin is warm and dry. Neurological: Mental Status: He is alert. General: No acute distress. HEENT: Tympanic membranes clear bilaterally; dental caries noted on upper and lower posterior teeth; mild edema noted on affected side of the mouth. {1. Dental caries (K02.9) 2. Dental infection (K04.7) - Severe dental pain originating from two teeth, one on the R upper and one on the lower jaw, with sharp pain radiating to the ear. Examination reveals significant decay in the posterior upper tooth extending to the gum line, and mild swelling on the affected side. - Initiated amoxicillin therapy, prescription sent to [facility]. - Advised patient to continue taking Tylenol and ibuprofen for pain management. - Recommended patient to contact other dental offices for an earlier appointment and to get on a waitlist with the current dentist. - Instructed patient to seek emergency care if pain becomes unmanageable. Recording using [employer] software for draft documentation of the visit was discussed with the patient/authorized players club representative; all questions welcomed and answered. Patient/authorized players club representative agreed to proceed History and Record Review External record(s) reviewed: prior outpatient record. Differential Diagnoses - Dental infection is more likely for the following reason(s): suggested by HANDP - Jude's angina is less likely for the following reason(s): HANDP not suggestive Disposition The patient was discharged. OTC Medications were advised: Tylenol/Motrin Procedures [facility] 10-21-2024 History of Presen t illness Narrative [facility] Subjective Juana Ni is a 23 year old male. Patient presents with: Dental Problem: R tooth pain and swelling x2 days HPI Dental Pain: - Onset: Approximately one week ago. - Location: Upper and lower teeth, with radiation to the ear. - Severity: Described as so bad; not relieved by Tylenol or ibuprofen. - Denies history of dental infections. - Unable to secure a dental appointment until March; actively seeking an earlier appointment. - No known medication allergies. PAST MEDICAL HISTORY Diagnosis Date ADHD (attention deficit hyperactivity disorder) NEGATIVE HISTORY OF 2012 normal color vision Other abnormal heart sounds 02/2002 Dr Dang--Functional Heart murmur PAST SURGICAL HISTORY Procedure Laterality Date NONE ALLERGIES Patient has no known allergies. MEDICATIONS amoxicillin (AMOXIL) 875 mg tablet Take 1 tablet by mouth two times a day for 5 days. lisdexamfetamine (VYVANSE) 50 mg capsule Take 1 capsule by mouth once daily for 30 days. Earliest Fill Date: 03/03/18 (Patient not taking: Reported on 08/03/2024) lisdexamfetamine (VYVANSE) 50 mg capsule Take 1 capsule by mouth once daily for 30 days. Earliest Fill Date: 02/03/18 (Patient not taking: Reported on 01/24/2018) lisdexamfetamine (VYVANSE) 50 mg capsule Take 1 capsule by mouth once daily for 30 days. Earliest Fill Date: 12/05/17 (Patient not taking: Reported on 08/03/2024) cloNIDine HCl (CATAPRES) 0.1 mg tablet One tablet po qhs (Patient not taking: Reported on 02/13/2021) FAMILY HISTORY Problem Relation Age of Onset other (heart murmur) Maternal Grandmother other (myocardial infarction) Maternal Grandmother mggm other (paternal unknown) Maternal Grandmother Social History Tobacco Use Smoking status: Every Day Types: Cigarettes Smokeless tobacco: Never Tobacco comments: smokers inside Substance Use Topics Alcohol use: No Drug use: No Review of Systems Ears/Nose/Mouth/Throat: (+) dental pain, (+) ear pain Objective BP 133/80 Pulse (!) 54 Temp 36.3 C (97.4 F) Resp 18 Wt 72.1 kg (158 lb 15.2 oz) SpO2 99% Physical Exam Vitals reviewed. Constitutional: General: He is not in acute distress. Appearance: Normal appearance. He is not toxic-appearing. HENT: Right Ear: Tympanic membrane and ear canal normal. Left Ear: Tympanic membrane and ear canal normal. Mouth/Throat: Mouth: Mucous membranes are moist. Dentition: Abnormal dentition. Dental tenderness, gingival swelling and dental caries present. No dental abscesses. Comments: Patient has diffuse dental decay with dental caries. Tooth #1 is decayed down to the gumline with gingival swelling. Tooth #32 is also tender to touch with decay and gum swelling. No trismus. Handling secretions. No tongue or floor mouth swelling. Cardiovascular: Rate and Rhythm: Normal rate and regular rhythm. Pulmonary: Effort: Pulmonary effort is normal. Breath sounds: Normal breath sounds. Skin: General: Skin is warm and dry. Neurological: Mental Status: He is alert. General: No acute distress. HEENT: Tympanic membranes clear bilaterally; dental caries noted on upper and lower posterior teeth; mild edema noted on affected side of the mouth. {1. Dental caries (K02.9) 2. Dental infection (K04.7) - Severe dental pain originating from two teeth, one on the R upper and one on the lower jaw, with sharp pain radiating to the ear. Examination reveals significant decay in the posterior upper tooth extending to the gum line, and mild swelling on the affected side. - Initiated amoxicillin therapy, prescription sent to [facility]. - Advised patient to continue taking Tylenol and ibuprofen for pain management. - Recommended patient to contact other dental offices for an earlier appointment and to get on a waitlist with the current dentist. - Instructed patient to seek emergency care if pain becomes unmanageable. Recording using [employer] software for draft documentation of the visit was discussed with the patient/authorized players club representative; all questions welcomed and answered. Patient/authorized players club representative agreed to proceed History and Record Review External record(s) reviewed: prior outpatient record. Differential Diagnoses - Dental infection is more likely for the following reason(s): suggested by H&P - Jude's angina is less likely for the following reason(s): H&P not suggestive Disposition The patient was discharged. OTC Medications were advised: Tylenol/Motrin Procedures documented in this encounter [facility] 08-08-2024 Hospital Discharg e instructions Additional Instructions Your exam shows changes consistent with an early outer ear infection. Use the prescribed drops as directed to resolve this. It would typically take 2 to 3 days for the antibiotics to take effect. Return to the ER should you have any further concerns or worsening of symptoms [facility] Work Phone: 08-03-2024 Note HNO ID: [id number] Author: ANA LILIA SHANKS APRN.[employer] LATHE OPERATOR Service: ? Author Type: Nurse Practitioner Type: Progress Notes Filed: 08/03/2024 11:05 Note Text: [facility] Subjective Juana Ni is a 23 year old male. Patient presents with: Ear Pain: R ear pain x 2 days Patient came in with complaints of right ear pain. Patient says been going on about 2 days. Patient denies any other symptoms such as sore throat, tooth pain, cough, sinus congestion. The history is provided by the patient. No bunker worker was used. Ear Pain Review of Systems Constitutional: Negative. HENT: Positive for ear pain. Objective BP 117/65 Pulse (!) 56 Temp 36.3 ?C (97.4 ?F) Resp 18 Wt 70 kg (154 lb 5.2 oz) SpO2 98% Physical Exam Constitutional: Appearance: Normal appearance. HENT: Right Ear: Tympanic membrane is erythematous and retracted. Left Ear: Tympanic membrane, ear canal and external ear normal. Mouth/Throat: Mouth: Mucous membranes are moist. Pharynx: Oropharynx is clear. Eyes: Pupils: Pupils are equal, round, and reactive to light. Cardiovascular: Rate and Rhythm: Normal rate and regular rhythm. Heart sounds: Normal heart sounds. Pulmonary: Effort: Pulmonary effort is normal. Breath sounds: Normal breath sounds. Neurological: Mental Status: He is alert. PAST MEDICAL HISTORY Diagnosis Date ADHD (attention deficit hyperactivity disorder) NEGATIVE HISTORY OF 2012 normal color vision Other abnormal heart sounds 02/2002 Dr Dang--Functional Heart murmur PAST SURGICAL HISTORY Procedure Laterality Date NONE ALLERGIES Patient has no known allergies. MEDICATIONS amoxicillin (AMOXIL) 875 mg tablet Take 1 tablet by mouth two times a day for 7 days. lisdexamfetamine (VYVANSE) 50 mg capsule Take 1 capsule by mouth once daily for 30 days. Earliest Fill Date: 03/03/18 (Patient not taking: Reported on 08/03/2024) lisdexamfetamine (VYVANSE) 50 mg capsule Take 1 capsule by mouth once daily for 30 days. Earliest Fill Date: 02/03/18 (Patient not taking: Reported on 01/24/2018) lisdexamfetamine (VYVANSE) 50 mg capsule Take 1 capsule by mouth once daily for 30 days. Earliest Fill Date: 12/05/17 (Patient not taking: Reported on 08/03/2024) cloNIDine HCl (CATAPRES) 0.1 mg tablet One tablet po qhs (Patient not taking: Reported on 02/13/2021) FAMILY HISTORY Problem Relation Age of Onset other (heart murmur) Maternal Grandmother other (myocardial infarction) Maternal Grandmother mggm other (paternal unknown) Maternal Grandmother Social History Tobacco Use Smoking status: Every Day Types: Cigarettes Smokeless tobacco: Never Tobacco comments: smokers inside Substance Use Topics Alcohol use: No Drug use: No {ASSESSMENT/PLAN: 1. Acute otitis media, right - ICD9: 382.9, ICD10: H66.91 - Will begin treatment with as per antibiotic as written, see orders - AMOXICILLIN 875 MG TABLET Ana Lilia Shanks APRN.[employer] LATHE OPERATOR MDM Procedures [facility] 08-03-2024 History of Presen t illness Narrative [facility] Subjective Juana Ni is a 23 year old male. Patient presents with: Ear Pain: R ear pain x 2 days Patient came in with complaints of right ear pain. Patient says been going on about 2 days. Patient denies any other symptoms such as sore throat, tooth pain, cough, sinus congestion. The history is provided by the patient. No bunker worker was used. Ear Pain Review of Systems Constitutional: Negative. HENT: Positive for ear pain. Objective BP 117/65 Pulse (!) 56 Temp 36.3 C (97.4 F) Resp 18 Wt 70 kg (154 lb 5.2 oz) SpO2 98% Physical Exam Constitutional: Appearance: Normal appearance. HENT: Right Ear: Tympanic membrane is erythematous and retracted. Left Ear: Tympanic membrane, ear canal and external ear normal. Mouth/Throat: Mouth: Mucous membranes are moist. Pharynx: Oropharynx is clear. Eyes: Pupils: Pupils are equal, round, and reactive to light. Cardiovascular: Rate and Rhythm: Normal rate and regular rhythm. Heart sounds: Normal heart sounds. Pulmonary: Effort: Pulmonary effort is normal. Breath sounds: Normal breath sounds. Neurological: Mental Status: He is alert. PAST MEDICAL HISTORY Diagnosis Date ADHD (attention deficit hyperactivity disorder) NEGATIVE HISTORY OF 2012 normal color vision Other abnormal heart sounds 02/2002 Dr Dang--Functional Heart murmur PAST SURGICAL HISTORY Procedure Laterality Date NONE ALLERGIES Patient has no known allergies. MEDICATIONS amoxicillin (AMOXIL) 875 mg tablet Take 1 tablet by mouth two times a day for 7 days. lisdexamfetamine (VYVANSE) 50 mg capsule Take 1 capsule by mouth once daily for 30 days. Earliest Fill Date: 03/03/18 (Patient not taking: Reported on 08/03/2024) lisdexamfetamine (VYVANSE) 50 mg capsule Take 1 capsule by mouth once daily for 30 days. Earliest Fill Date: 02/03/18 (Patient not taking: Reported on 01/24/2018) lisdexamfetamine (VYVANSE) 50 mg capsule Take 1 capsule by mouth once daily for 30 days. Earliest Fill Date: 12/05/17 (Patient not taking: Reported on 08/03/2024) cloNIDine HCl (CATAPRES) 0.1 mg tablet One tablet po qhs (Patient not taking: Reported on 02/13/2021) FAMILY HISTORY Problem Relation Age of Onset other (heart murmur) Maternal Grandmother other (myocardial infarction) Maternal Grandmother mggm other (paternal unknown) Maternal Grandmother Social History Tobacco Use Smoking status: Every Day Types: Cigarettes Smokeless tobacco: Never Tobacco comments: smokers inside Substance Use Topics Alcohol use: No Drug use: No {ASSESSMENT/PLAN: 1. Acute otitis media, right - ICD9: 382.9, ICD10: H66.91 - Will begin treatment with as per antibiotic as written, see orders - AMOXICILLIN 875 MG TABLET Ana Lilia Shanks APRN.LIAM MDM Procedures documented in this encounter [facility] 12-30-2023 Telephone encount er Note Patient returned call, notified of results. Florentin Pat MA [facility] 12-30-2023 Miscellaneous Notes Formattin g of this note might be different from the original. Patient returned call, notified of results. Florentin Pat MA Patient does not have working phone, left message with MIL Regina to have patient call in to receive results. Florentin Pat MA Negative for COVID flu RSV documented in this encounter [facility] 12-30-2023 Telephone encount er Note Patient does not have working phone, left message with [employer] to have patient call in to receive results. Florentin Pat MA [facility] 12-30-2023 Telephone encount er Note Negative for COVID flu RSV [facility] Work Phone: 12-29-2023 Note Addended by: Kwame ASTUDILLO on: 12/29/2023 11:55 AM Modules accepted: Orders [facility] 12-29-2023 Miscellaneous Notes Addended by: JULITO ASTUDILLO on: 12/29/2023 11:55 AM Modules accepted: Orders documented in this encounter [facility] 12-29-2023 Note HNO ID: [id number] Author: JULITO ASTUDILLO APRN.[employer] LATHE OPERATOR Service: ? Author Type: Nurse Practitioner Type: Progress Notes Filed: 12/29/2023 10:44 Note Text: Subjective HPI HPI Juana Ni is a 23 year old male who presents today for CC of cough, weakness. This started 1 day ago. Has tried nothing for relief. Symptoms are worsened by nothing. Risk factors close covid exposure. smoker. .Patient presents with: Exposed to Covid: Covid test PAST MEDICAL HISTORY No date: ADHD (attention deficit hyperactivity disorder) 2013: NEGATIVE HISTORY OF Comment: normal color vision 02/2002: Other abnormal heart sounds Comment: Dr Dang--Functional Heart murmur PAST SURGICAL HISTORY No date: NONE ALLERGIES Patient has no known allergies. MEDICATIONS lisdexamfetamine (VYVANSE) 50 mg capsule Take 1 capsule by mouth once daily for 30 days. Earliest Fill Date: 03/03/18 lisdexamfetamine (VYVANSE) 50 mg capsule Take 1 capsule by mouth once daily for 30 days. Earliest Fill Date: 02/03/18 (Patient not taking: Reported on 01/24/2018 ) lisdexamfetamine (VYVANSE) 50 mg capsule Take 1 capsule by mouth once daily for 30 days. Earliest Fill Date: 12/05/17 cloNIDine HCl (CATAPRES) 0.1 mg tablet One tablet po qhs (Patient not taking: Reported on 02/13/2021 ) FAMILY HISTORY Problem Relation Age of Onset other (heart murmur) Maternal Grandmother other (myocardial infarction) Maternal Grandmother mggm other (paternal unknown) Maternal Grandmother Social History Tobacco Use Smoking status: Every Day Types: Cigarettes Smokeless tobacco: Never Tobacco comments: smokers inside Substance Use Topics Alcohol use: No Drug use: No Review of Systems Constitutional: Positive for malaise/fatigue. Negative for fever. HENT: Negative for congestion, ear pain, nosebleeds and sore throat. Respiratory: Positive for cough and sputum production. Negative for shortness of breath and wheezing. Cardiovascular: Negative for chest pain. Musculoskeletal: Negative for neck pain. Skin: Negative for itching and rash. Objective Blood pressure 102/62, pulse 60, temperature 36.5 ?C (97.7 ?F), resp. rate 20, weight 69.7 kg (153 lb 10.6 oz), SpO2 99%. Physical Exam Constitutional: General: He is not in acute distress. Appearance: He is not toxic-appearing or diaphoretic. HENT: Head: Normocephalic and atraumatic. Cardiovascular: Rate and Rhythm: Normal rate and regular rhythm. Heart sounds: Normal heart sounds, S1 normal and S2 normal. Pulmonary: Effort: Pulmonary effort is normal. Breath sounds: Normal breath sounds. Lymphadenopathy: Cervical: No cervical adenopathy. Right cervical: No superficial cervical adenopathy. Left cervical: No superficial cervical adenopathy. Neurological: Mental Status: He is alert and oriented to person, place, and time. Gait: Gait is intact. ASSESSMENT/PLAN: 1. URI, acute - ICD9: 465.9, ICD10: J06.9 (primary diagnosis) - Discussed viral etiology and rationale for treatment. - Symptomatic treatment with prn analgesia - Supportive care with fluids and rest - Follow up in 3-5 days if symptoms persist or sooner if worsening of symptoms If positive is not interested in covid treatment. 2. Close exposure to COVID-19 virus - ICD9: V01.79, ICD10: Z20.822 Julito Astudillo APRN.[facility] 12-29-2023 History of Presen t illness Narrative Subjective HPI HPI Juana Ni is a 23 year old male who presents today for CC of cough, weakness. This started 1 day ago. Has tried nothing for relief. Symptoms are worsened by nothing. Risk factors close covid exposure. smoker. .Patient presents with: Exposed to Covid: Covid test PAST MEDICAL HISTORY No date: ADHD (attention deficit hyperactivity disorder) 2013: NEGATIVE HISTORY OF Comment: normal color vision 02/2002: Other abnormal heart sounds Comment: Dr Dang--Functional Heart murmur PAST SURGICAL HISTORY No date: NONE ALLERGIES Patient has no known allergies. MEDICATIONS lisdexamfetamine (VYVANSE) 50 mg capsule Take 1 capsule by mouth once daily for 30 days. Earliest Fill Date: 03/03/18 lisdexamfetamine (VYVANSE) 50 mg capsule Take 1 capsule by mouth once daily for 30 days. Earliest Fill Date: 02/03/18 (Patient not taking: Reported on 01/24/2018 ) lisdexamfetamine (VYVANSE) 50 mg capsule Take 1 capsule by mouth once daily for 30 days. Earliest Fill Date: 12/05/17 cloNIDine HCl (CATAPRES) 0.1 mg tablet One tablet po qhs (Patient not taking: Reported on 02/13/2021 ) FAMILY HISTORY Problem Relation Age of Onset other (heart murmur) Maternal Grandmother other (myocardial infarction) Maternal Grandmother mggm other (paternal unknown) Maternal Grandmother Social History Tobacco Use Smoking status: Every Day Types: Cigarettes Smokeless tobacco: Never Tobacco comments: smokers inside Substance Use Topics Alcohol use: No Drug use: No Review of Systems Constitutional: Positive for malaise/fatigue. Negative for fever. HENT: Negative for congestion, ear pain, nosebleeds and sore throat. Respiratory: Positive for cough and sputum production. Negative for shortness of breath and wheezing. Cardiovascular: Negative for chest pain. Musculoskeletal: Negative for neck pain. Skin: Negative for itching and rash. Objective Blood pressure 102/62, pulse 60, temperature 36.5 C (97.7 F), resp. rate 20, weight 69.7 kg (153 lb 10.6 oz), SpO2 99%. Physical Exam Constitutional: General: He is not in acute distress. Appearance: He is not toxic-appearing or diaphoretic. HENT: Head: Normocephalic and atraumatic. Cardiovascular: Rate and Rhythm: Normal rate and regular rhythm. Heart sounds: Normal heart sounds, S1 normal and S2 normal. Pulmonary: Effort: Pulmonary effort is normal. Breath sounds: Normal breath sounds. Lymphadenopathy: Cervical: No cervical adenopathy. Right cervical: No superficial cervical adenopathy. Left cervical: No superficial cervical adenopathy. Neurological: Mental Status: He is alert and oriented to person, place, and time. Gait: Gait is intact. ASSESSMENT/PLAN: 1. URI, acute - ICD9: 465.9, ICD10: J06.9 (primary diagnosis) - Discussed viral etiology and rationale for treatment. - Symptomatic treatment with prn analgesia - Supportive care with fluids and rest - Follow up in 3-5 days if symptoms persist or sooner if worsening of symptoms If positive is not interested in covid treatment. 2. Close exposure to COVID-19 virus - ICD9: V01.79, ICD10: Z20.822 Julito Astudillo APRN.LIAM documented in this encounter [facility] Evaluation note No assessment inform ation available [facility] Work Phone: Evaluation note Diagnosis URI, acute- Primary Acute upper respiratory infections of unspecified site Close exposure to COVID-19 virus [facility] Diagnosis Acute otitis media, right- Primary Unspecified otitis media [facility] Diagnosis Dental infection- Primary Acute apical periodontitis of pulpal origin Dental caries Unspecified dental [facility] Additional Instructions Thank you for trusting us with your care today! Please take Tylenol (2 pills, 650 mg), ibuprofen (2 pills, 400 mg) every 6 hours as needed for pain and fever control. Please return to the emergency department if your symptoms change or worsen. Specifically if you develop chest pain, worsening shortness of breath, lower extremity swelling, if you lose consciousness. Please return if you cannot tolerate your medicine by mouth. Please follow with your primary care physician for further outpatient evaluation and management.[facility] Work Phone: Hospital Discharge instructionsAdditional Instructions Take your antibiotics as prescribed. Continue Tylenol or Motrin for pain control. Keep your dental appointment on November 26 for definitive treatment.[facility] Work Phone: Summary Purpose Family History No Family History Records FoundNo Family History Records FoundNo Family History Records FoundNo Family History Records Found Advance Directives No Advanced Directives Records Found Advance Directive Response Recorded Date/ Time Advance Directives No May 28, 2016 1:05am Living Will No July 19, 2022 8:07am Power of Gender Studies Professor No July 19 8:07am Advance Directive Response Recorded Date/ Time Advance Directives No May 28, 2016 1:05am Living Will No August 28, 2022 2: 08am Power of Gender Studies Professor No August 28, 2022 2:08am Advance Directive Response Recorded Date/ Time Living Will No August 08, 2024 4:58am Do you have a Healthcare Power of Gender Studies Professor? No August 08, 2024 4:58am Living Will No May 18 9:09pm Do you have a Healthcare Power of Gender Studies Professor? No May 18, 2024 9:09pm Advance Directives No May 28, 2016 1:05am Advance Directive Response Recorded Date/ Time Living Will No August 08, 2024 4:58am Do you have a Healthcare Power of Gender Studies Professor? No August 08, 2024 4:58am Advance Directives No May 28, 2016 1:05am Advance Directive Response Recorded Date/ Time Living Will No August 08, 2024 4:58am Do you have a Healthcare Power of Gender Studies Professor? No August 08, 2024 4:58am Do you have a Healthcare Power of Gender Studies Professor? No November 15, 2024 10:37pm Advance Directives No May 28, 2016 1:05am Chief Complaint and Reason for Visit Chief Complaint bleeding eye Chief Complaint bleeding eye cold sym Chief Complaint Admit Date groin May 18, 2024 7 :08pm ear and jaw pain August 08, 2024 4:5 4am Chief Complaint Admit Date ear and jaw pain August 08, 2024 4:5 4am DENTAL PAIN October 15, 2024 9:52 am Chief Complaint Admit Date ear and jaw pain August 08, 2024 4:5 4am DENTAL PAIN October 15, 2024 9:52 am dental November 15, 2024 10:1 6pm Additional Source Comments (unrecognized sect ion and content) No Status Records FoundNo Status Records FoundNo Status Records FoundNo Status Records Found INFORMATION SOURCE (unrecogn ized section and content) DATE CREATED AUTHOR 10/18/2017 [facility] ([place]) DATE CREATED AUTHOR AUTHOR'S ORGANIZ ATION 11/09/2022 [facility] DATE CREATED AUTHOR AUTHOR'S ORGANIZ ATION 10/21/2024 [facility] DATE CREATED AUTHOR AUTHOR'S ORGANIZ ATION [facility] Care Teams (unrecognized sec tion and content) Team Status: Active Member Role Status Dates Dr. Bj Peña MD Family Provider Active No Primary Care Physician Primary Care Provider Active Team Status: Inactive Member Role Status Dates Dr. Misti Ortiz MD Emergency Provider Active No Primary Care Physician Primary Care Provider Active Team Status: Inactive Member Role Status Dates Dr. Misti Ortiz MD Attending Provider, Emergency Provider Active No Primary Care Physician Primary Care Provider Active Team Status: Inactive Member Role Status Dates No Primary Care Physician Primary Care Provider Active Dr. Claudio Spain , DO Emergency Provider Active Industrial Hygiene Technician Relationship Specialty Start Date End Date Bj Peña MD [address] [place] [address] PCP - General 02/16/02 Industrial Hygiene Technician Relationship Specialty Start Date End Date Bj Peña MD [address] [facility], [place] [id number] PCP - General 02/16/02 Team Status: Active Member Role Status Dates No Primary Care Physician Primary Care Provider Active Team Status: Inactive Member Role Status Dates No Primary Care Physician Primary Care Provider Active Start: May 18, 2024 End: May 18, 2024 Dr. Christina Martinez , Attending Provider Active Start: May 18, 2024 End: May 18, 2024 Dr. Christina Martinez , Emergency Provider Active Start: May 18, 2024 End: May 18, 2024 Team Status: Inactive Member Role Status Dates No Primary Care Physician Primary Care Provider Active Start: August 08, 2024 End: August 08, 2024 Dr. Alfred Quinones DO Emergency Provider Active Start: August 08, 2024 End: August 08, 2024 Team Status: Inactive Member Role Status Dates No Primary Care Physician Primary Care Provider Active Start: August 08, 2024 End: August 08, 2024 Dr. Alfred Quinones DO Attending Provider Active Start: August 08, 2024 End: August 08, 2024 Dr. Alfred Quinones DO Emergency Provider Active Start: August 08, 2024 End: August 08, 2024 Team Status: Inactive Member Role Status Dates No Primary Care Physician Primary Care Provider Active Start: October 15, 2024 End: October 15, 2024 Ed Physician Provider Emergency Provider Active Start: October 15, 2024 End: October 15, 2024 Team Status: Active Member Role/Relationship Status Dates No Primary Care Physician Primary Care Provider Active Team Status: Inactive Member Role/Relationship Status Dates No Primary Care Physician Primary Care Provider Active Start: August 08, 2024 End: August 08, 2024 Dr. Alfred Quinones , Attending Provider Active Start: August 08, 2024 End: August 08, 2024 Dr. Alfred Quinones , DO Emergency Provider Active Start: August 08, 2024 End: August 08, 2024 Team Status: Inactive Member Role/Relationship Status Dates No Primary Care Physician Primary Care Provider Active Start: October 15, 2024 End: October 15, 2024 Ed Physician Provider Attending Provider Active Start: October 15, 2024 End: October 15, 2024 Ed Physician Provider Emergency Provider Active Start: October 15, 2024 End: October 15, 2024 Team Status: Inactive Member Role/Relationship Status Dates No Primary Care Physician Primary Care Provider Active Start: November 15, 2024 End: November 15, 2024 Dr. Natanael Bloom , Emergency Provider Active Start : November 15, 2024 End: November 15, 2024 Goals (unrecognized section and content) Goals may be documented in a n alternate sectionGoals may be documented in an alternate sectionGoals may be documented in an alternate sectionGoals may be documented in an alternate sectionGoals may be documented in an alternate section Source Comments (unrecognize d section and content) In the event this informatio n is protected by the Federal Confidentiality of Alcohol and Drug Abuse Patient Records regulations: The Federal rules restrict any use of the information to criminally investigate or prosecute any alcohol or drug abuse patient.[facility] Hospital[facility] the event this information is protected by the Federal Confidentiality of Alcohol and Drug Abuse Patient Records regulations: The Federal rules restrict any use of the information to criminally investigate or prosecute any alcohol or drug abuse patient.[facility] HospitalIn the event this information is protected by the Federal Confidentiality of Alcohol and Drug Abuse Patient Records regulations: The Federal rules restrict any use of the information to criminally investigate or prosecute any alcohol or drug abuse patient.[facility] Hospital[facility] the event this information is protected by the Federal Confidentiality of Alcohol and Drug Abuse Patient Records regulations: The Federal rules restrict any use of the information to criminally investigate or prosecute any alcohol or drug abuse patient.[facility] Reason for Visit (unrecogniz ed section and content) Reason Comments Exposed to Covid Covid test Reason Comments Results Reason Comments Ear Pain R ear pain x 2 days Reason Comments Dental Problem R tooth pain and swe lling x2 days FOR RECORDS PERTAINING TO PATIENTS WHO ARE OR HAVE BEEN ENROLLED IN A CHEMICAL DEPENDENCY/SUBSTANCEABUSE PROGRAM, SOME INFORMATION MAY BE OMITTED. This clinical summary was aggregated from multiple sources. Caution should be exercised in using it in the provision of clinical care. This summary normalizes information from multiple sources, and as a consequence, information in this document may materially change the coding, format and clinical context of patient data. In addition, data may be omitted in some cases. CLINICAL DECISIONS SHOULD BE BASED ON THE PRIMARY CLINICAL RECORDS. [facility]. provides no warranty or guarantee of the accuracy or completeness of information in this document.
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
[2024-11-30 23:47] VITALS: BP 121/65; PULSE 57; RESP 16; TEMP 36.9; O2SAT 99
== END 2024-11-30 23:48 | disposition home or self-care (01) ==
PROVIDERS: Emergency Provider Emergency Medicine; Visit Provider Emergency Medicine
DX: S61.211A Laceration without foreign body of left index finger without damage to nail, initial encounter (principal); F17.210 Nicotine dependence, cigarettes, uncomplicated; F17.290 Nicotine dependence, other tobacco product, uncomplicated; X58.XXXA Exposure to other specified factors, initial encounter
CPT/HCPCS: 73140; 99282